=== PATIENT | female | born 1960 | race African-American/Black ===

== ENCOUNTER 2016-11-04 10:13 | Emergency (ER) | payer MEDICARE, OTHER ==
[~2016-11-04] VITALS: Ht 170.2 cm; Wt 86.2 kg
[~2016-11-04 10:13] MED LIST: CEPHALEXIN500 MG ORAL; CLINDAMYCIN HC150 MG ORAL; HYDROCHLOROTHIA25 MG ORAL; HYDROXYZINE HCL25 M1 PO; IBUPROFEN600 MG ORAL; IBUPROFEN800 MG ORAL; NORCO 5-325 TA1 EACH ORAL; PERMETHRIN60 GM TOPIC; PREDNISONE20 MG ORAL; VERAPAMIL ER240 MG ORAL; ZOCOR20 M1 ORAL
[2016-11-04 10:22] VITALS: BP 156/98
[2016-11-04] MEDS ORDERED: Solu-MEDROL 125mg Inj IM ONE (10:45)
--- NOTE | 2016-11-04 10:57 | Emergency Room Report ---
History of Present Illness General Chief Complaint: Skin Rash/Abscess Source: Patient Present Illness HPI Patient present with complaints of rash involving the upper neck upper shoulder area The rash is also involving both arms The area is itchy nature patient reports similar breakout several times in the past Denies any medications at this time denies any chest pain or shortness of breath Denies any recent travel or change in detergents Patient has not seen a cash posting clerk as of yet denies any vomiting denies any abdominal pain Allergies: Coded Allergies: No Known Allergies (Unverified , 08/04/14) Patient History Past Medical History: see triage record Pertinent Family History: none Last Menstrual Period: N/A Now: No Reviewed Nursing Documentation: PMH: Agreed, PSxH: Agreed Nursing Documentation-PMH Past Medical History: No History, Except For Hx Hypertension: Yes Review of Systems All Other Systems: negative except mentioned in HPI Physical Exam Vital Signs Date Time Temp Pulse Resp B/P Pulse Ox O2 Delivery O2 Flow Rate FiO2 11/04/16 10:16 98.2 102 16 156/98 100 Room Air Sp02 EP Interpretation: reviewed, normal General Appearance: well appearing, no apparent distress Head: normocephalic, atraumatic Eyes: bilateral eye EOMI, bilateral eye PERRL ENT: hearing grossly normal, normal pharynx, TMs + canals normal, uvula midline Neck: full range of motion, supple, no meningismus, no bony tend Respiratory: lungs clear, normal breath sounds, no rhonchi, no respiratory distress, no retraction, no accessory muscle use Cardiovascular #1: normal peripheral pulses, regular rate, rhythm, no edema, no gallop, no JVD, no murmur Gastrointestinal: normal bowel sounds, non tender, soft, no mass, no organomegaly, non-distended, no guarding, no hernia, no pulsatile mass, no rebound Musculoskeletal: normal inspection Neurologic: oriented x3, responsive, ems educator III-XII nml as tested, motor strength/ tone normal, sensory intact Psychiatric: mood/affect normal Skin: other - Rash involving the bilateral lower neck trapezius area, essentially what appears to be of the for the next, appears possibly eczematous in nature given some of the scaling of the skin, there is also some findings involving the forearm Lymphatic: normal inspection, no adenopathy Medical Decision Making Diagnostic Impression: Primary Impression: Rash and other nonspecific skin eruption ER Course Multiple differentials are considered including but not limited to, eczema, autoimmune type disease Medication reaction however the patient reports that she is not taking any medication Patient was treated symptomatically She has had several presentations with similar rash And she was encouraged highly to followup with dermatology, Last Vital Signs Date Time Temp Pulse Resp B/P Pulse Ox O2 Delivery O2 Flow Rate FiO2 11/04/16 10:22 98.2 72 16 156/98 100 Room Air Status: improved Disposition: HOME, SELF-CARE Condition: Improved Scripts Diphenhydramine Hcl* (BENADRYL*) 25 Mg Capsule 25 MG ORAL Q6H Y for Itching, #20 CAP Prov: VONNIE JACOBO D.O. 11/04/16 Ranitidine Hcl* (ZANTAC*) 150 Mg Tablet 150 MG ORAL TWICE A DAY, #30 TAB Prov: VONNIE JACOBO D.O. 11/04/16 Prednisone* (PREDNISONE*) 20 Mg Tablet 20 MG ORAL BID, #8 TAB 0 Refills Prov: VONNIE JACOBO D.O. 11/04/16 Additional Instructions: Patient is provided with the discharge instructions notified to follow up with primary doctor in the next 2-3 days otherwise return to the er with any worsening symptoms. Please note that this report is being documented using [employer] technology. This can lead to erroneous entry secondary to incorrect interpretation by the dictating instrument. VONNIE JACOBO D.O. Nov 04, 2016 10:57
[2016-11-04] MEDS ORDERED: RANITIDINE HCL150 MG ORAL (11:12)
[2016-11-04] MEDS ORDERED: PREDNISONE20 MG ORAL (11:12)
[2016-11-04] MEDS ORDERED: BENADRYL25 MG ORAL (11:12)
[2016-11-04 11:17] VITALS: BP 151/89
== END 2016-11-04 11:21 | disposition home or self-care (01) ==
LOC: EMR 11:06
DX: R21 Rash and other nonspecific skin eruption (principal); I10 Essential (primary) hypertension
CPT/HCPCS: 96372; 99284; J2930

== ENCOUNTER 2016-11-15 10:30 | Emergency (ER) | payer MEDICARE, OTHER ==
[~2016-11-15] VITALS: Ht 170.2 cm; Wt 88.5 kg
[~2016-11-15 10:30] MED LIST changes: +BENADRYL25 MG ORAL; +RANITIDINE HCL150 MG ORAL
[2016-11-15 10:49] VITALS: BP 137/91
[2016-11-15] MEDS ORDERED: BENAZEPRIL HCL10 MG ORAL (10:52)
[2016-11-15] MEDS ORDERED: Ketorolac 30mg Inj IV ONE (11:00)
[2016-11-15 11:38] LABS: MEAN CORPUSCULAR HEMOGLOBIN 32.8 PG (27.0-31.0); MEAN CORPUSCULAR HGB CONC 33.9 G/DL (32.0-36.0); MEAN CORPUSCULAR VOLUME 97 FL (80-99); MEAN PLATELET VOLUME 7.1 FL (6.5-10.1); PLATELET COUNT 345 K/UL (150-450); RED BLOOD COUNT 4.64 M/UL (4.20-5.40); RED CELL DISTRIBUTION WIDTH 11.5 % (11.6-14.8); WHITE BLOOD COUNT 13.1 K/UL (4.8-10.8)
[2016-11-15 11:43] LABS: APPEARANCE,URINE CLEAR; KETONES,URINE NEGATIVE (NEGATIVE); LEUKOCYTE ESTERASE ,URINE NEGATIVE (NEGATIVE); NITRITE,URINE NEGATIVE (NEGATIVE); PH,URINE 6.5 (4.5-8.0); PROTEIN,URINE NEGATIVE (NEGATIVE); UROBILINOGEN,URINE NORMAL MG/DL (0.0-1.0)
[2016-11-15 11:46] LABS: PROTHROMBIN TIME 9.9 SEC (9.30-11.50)
[2016-11-15 11:57] LABS: ALANINE AMINOTRANSFERASE 20 U/L (3-33); ALBUMIN/GLOBULIN RATIO 1.4 (1.0-2.7); ANION GAP 18 (5-15); ASPARTATE AMINO TRANSFERASE 14 U/L (5-40); CALCIUM 9.8 mg/dL (8.6-10.2); CARBON DIOXIDE 23 mEQ/L (20-30); CHLORIDE 97 mEQ/L (98-107); CREATININE 0.8 mg/dL (0.5-0.9); GLOMERULAR FILTRATION RATE > 60 mL/min (>60); HEMOLYSIS 7; LIPASE 47 U/L (< 60); SODIUM 138 mEQ/L (135-145); TOTAL PROTEIN 7.3 g/dL (6.6-8.7)
[2016-11-15 12:00] LABS: BAND NEUTROPHILS % (MANUAL) 4 % (0-8); BASOPHILS % (MANUAL) 0 % (0-2); EOSINOPHILS % (MANUAL) 0 % (0-3); LYMPHOCYTES % (MANUAL) 12 % (20-45); NEUTROPHILS % (MANUAL) 81 % (45-75); PLATELET ESTIMATE ADEQUATE; PLATELET MORPHOLOGY NORMAL; TOTAL CELLS COUNTED 100
[2016-11-15 12:06] VITALS: BP 125/74
--- NOTE | 2016-11-15 12:53 | Diagnostic Imaging Report ---
Indication: Right flank pain and abdominal pain Technique: Supine view of the abdomen Comparison: none Findings: Exam is limited due to patient body habitus. The liver appears enlarged. Bowel gas pattern is unremarkable. No unusual masses or calcifications. Calcifications in the pelvis probably represent phleboliths, although ureteral calculi not excludable Impression: No acute process Findings as noted
[2016-11-15 14:07] VITALS: BP 118/73
--- NOTE | 2016-11-15 14:47 | Emergency Room Report ---
History of Present Illness General Chief Complaint: Back Pain-No Injury Source: Patient Present Illness HPI Patient presents with R flank pain. This began yesterday. Not happen with strain or lifting. 8/10, aching, not radiating. Some frequent urination. Concern over possible UTI or kidney problem. Never with back problems. Worse with movement. No fevers, chills, NVD, change bowels. Not radiate to legs. Had prior kidney infection. No chest pain, swelling, dyspnea, headache, anxiety. H/O HTN. Allergies: Coded Allergies: No Known Allergies (Unverified , 08/04/14) Patient History Past Medical History: see triage record Social History: Reports: smoking Social History Narrative at home Reviewed Nursing Documentation: PMH: Agreed, PSxH: Agreed Nursing Documentation-PMH Past Medical History: No History, Except For Hx Hypertension: Yes Review of Systems All Other Systems: negative except mentioned in HPI Physical Exam Vital Signs Date Time Temp Pulse Resp B/P Pulse Ox O2 Delivery O2 Flow Rate FiO2 11/15/16 10:49 99.1 115 20 137/91 98 Room Air Sp02 EP Interpretation: reviewed, normal General Appearance: well appearing, no apparent distress, GCS 15 Head: normocephalic Eyes: bilateral eye PERRL, bilateral eye normal inspection ENT: moist mucus membranes Neck: supple Respiratory: lungs clear, normal breath sounds Cardiovascular #1: regular rate, rhythm Cardiovascular #2: 2+ radial (R) Gastrointestinal: normal inspection, normal bowel sounds, non tender, no mass, non-distended Genitourinary: CVA tenderness (R) Musculoskeletal: gait/station normal, normal range of motion, no calf tenderness, pelvis stable Neurologic: alert, oriented x3, grossly normal Psychiatric: mood/affect normal Skin: normal inspection, warm/dry Medical Decision Making Diagnostic Impression: Primary Impression: Flank pain Additional Impression: Leukocytosis Qualified Codes: D72.828 - Other elevated white blood cell count ER Course Patient with R flank pain and h/o kidney infection in past. DDx: pyelo, UTI, stone, strain, vascular process, back pain amongst others. Evaluation with UA, xrays, labs. Treatment with IV hydration, analgesia (patient drove self here). Labs with leukocytosis. With the nature of pain, CT indicated. CT without findings related to back pain. Improved with toradol. Offered to admit patient. She is choosing outpatient observation - has appointment with PMD on Sunday. Told to return if worsened or fevers. Patient stable for outpatient observation and treatment. Laboratory Tests Test 11/15/16 11:14 White Blood Count 13.1 K/UL (4.8-10.8) H Red Blood Count 4.64 M/UL (4.20-5.40) Hemoglobin 15.2 G/DL (12.0-16.0) Hematocrit 44.7 % (37.0-47.0) Mean Corpuscular Volume 97 FL (80-99) Mean Corpuscular Hemoglobin 32.8 PG (27.0-31.0) H Mean Corpuscular Hemoglobin Concent 33.9 G/DL (32.0-36.0) Red Cell Distribution Width 11.5 % (11.6-14.8) L Platelet Count 345 K/UL (150-450) Mean Platelet Volume 7.1 FL (6.5-10.1) Neutrophils (%) (Auto) % (45.0-75.0) Lymphocytes (%) (Auto) % (20.0-45.0) Monocytes (%) (Auto) % (1.0-10.0) Eosinophils (%) (Auto) % (0.0-3.0) Basophils (%) (Auto) % (0.0-2.0) Differential Total Cells Counted 100 Neutrophils % (Manual) 81 % (45-75) H Lymphocytes % (Manual) 12 % (20-45) L Monocytes % (Manual) 3 % (1-10) Eosinophils % (Manual) 0 % (0-3) Basophils % (Manual) 0 % (0-2) Band Neutrophils 4 % (0-8) Platelet Estimate Adequate Platelet Morphology Normal Red Blood Cell Morphology Normal Prothrombin Time 9.9 SEC (9.30-11.50) Prothrombin Time INR 1.0 (0.9-1.1) PTT 25 SEC (23-33) Urine Color Pale yellow Urine Appearance Clear Urine pH 6.5 (4.5-8.0) Urine Specific Laie 1.010 (1.005-1.035) Urine Protein Negative (NEGATIVE) Urine Glucose (UA) Negative (NEGATIVE) Urine Ketones Negative (NEGATIVE) Urine Occult Blood Negative (NEGATIVE) Urine Nitrite Negative (NEGATIVE) Urine Bilirubin Negative (NEGATIVE) Urine Urobilinogen Normal MG/DL (0.0-1.0) Urine Leukocyte Esterase Negative (NEGATIVE) Sodium Level 138 mEQ/L (135-145) Potassium Level 4.0 mEQ/L (3.4-4.9) Chloride Level 97 mEQ/L (98-107) L Carbon Dioxide Level 23 mEQ/L (20-30) Anion Gap 18 (5-15) H Blood Urea Nitrogen 13 mg/dL (7-23) Creatinine 0.8 mg/dL (0.5-0.9) Estimate Glomerular Filtration Rate > 60 mL/min (>60) Glucose Level 153 mg/dL (74-106) H Calcium Level 9.8 mg/dL (8.6-10.2) Total Bilirubin 0.4 mg/dL (0.0-1.2) Aspartate Amino Transferase (AST) 14 U/L (5-40) Alanine Aminotransferase (ALT) 20 U/L (3-33) Alkaline Phosphatase 62 U/L (35-104) Total Protein 7.3 g/dL (6.6-8.7) Albumin 4.3 g/dL (3.5-5.2) Globulin 3.0 g/dL Albumin/Globulin Ratio 1.4 (1.0-2.7) Lipase 47 U/L (< 60) Other X-Ray Diagnostic Results Other X-Ray Diagnostic Results : X-Ray Ordered: abdomen EP Interpretation: Yes Findings: other - pelvic calcifications, no SBO, NSBGP Number of Views: 2 CT/MRI/US Diagnostic Results CT/MRI/US Diagnostic Results : Imaging Test Ordered: abd/pelvis Impression Impression: No acute process Colonic diverticulosis. No evidence of diverticulitis Tiny nonobstructive prior report renal calculi. No evidence of ureteral calculus or obstructive uropathy Incidental finding of left chest wall musculature intramuscular lipoma Subcentimeter low-attenuation lesion in segment 2 of the liver, too small to characterize, most likely a benign simple cysts or bile hamartomas. Subcentimeter low-attenuation lesion projecting off of the upper pole right kidney, most likely a benign simple cortical cyst. No further followup necessary for either of these Last Vital Signs Date Time Temp Pulse Resp B/P Pulse Ox O2 Delivery O2 Flow Rate FiO2 11/15/16 15:22 80 14 130/93 99 Room Air 11/15/16 14:07 97.9 Status: improved Disposition: HOME, SELF-CARE Condition: Improved Scripts Tramadol Hcl* (ULTRAM*) 50 Mg Tablet 50 MG ORAL Q6H Y for For Pain, #10 TAB 0 Refills Prov: Joel Klein M.D. 11/15/16 Ibuprofen* (MOTRIN*) 600 Mg Tablet 600 MG ORAL Q6H Y for For Pain, #16 TAB Prov: Joel Klein M.D. 11/15/16 Referrals: NOT CHOSEN GISEL/,REFERRING (PCP) Joel Klein M.D. November 15, 2016 14:47
[2016-11-15] MEDS ORDERED: IBUPROFEN600 MG ORAL (14:50)
[2016-11-15] MEDS ORDERED: TRAMADOL HCL50 MG ORAL (14:50)
[2016-11-15 15:22] VITALS: BP 130/93
--- NOTE | 2016-11-16 08:39 | Diagnostic Imaging Report ---
Clinical Indication: Right-sided low back pain, frequent urination Technique: No oral contrast utilized, per emergency room physician request IV administration nonionic contrast. Venous phase spiral acquisition obtained through the abdomen and pelvis. Multiplanar reconstructions were generated. Total dose length product 896 mGycm. CTDIvol(s) 17 mGy. Dose reduction achieved using automated exposure control Comparison: None Findings: There is colonic diverticulosis. No evidence of diverticulitis. The appendix is normal. No small bowel distention. No free or loculated intraperitoneal air or fluid. The distal esophagus, stomach, duodenum are unremarkable. The liver demonstrates a subcentimeter low-attenuation lesion in segment 2. The bile ducts are unremarkable. Gallbladder is unremarkable. The pancreas, spleen, adrenals are unremarkable. Tiny nonobstructive calculi are seen in the upper pole of the right renal collecting system. No evidence of ureteral calculi, hydronephrosis, or hydroureter. There is a subcentimeter low-attenuation lesion projecting off of the upper pole of the right kidney. No focal renal cortical abnormality otherwise. No retroperitoneal or mesenteric mass or adenopathy. No pelvic mass or adenopathy. Uterus adnexal structures, bladder are all unremarkable. No evidence of significant soft tissue injury. The bones are unremarkable except for degenerative changes of the lumbosacral junction. The included lung bases are clear.. There is a 4.8 x 2.6 x 4 cm intramuscular lipoma in the left chest wall musculature. Impression: No acute process Colonic diverticulosis. No evidence of diverticulitis Tiny nonobstructive prior report renal calculi. No evidence of ureteral calculus or obstructive uropathy Incidental finding of left chest wall musculature intramuscular lipoma Subcentimeter low-attenuation lesion in segment 2 of the liver, too small to characterize, most likely a benign simple cysts or bile hamartomas. Subcentimeter low-attenuation lesion projecting off of the upper pole right kidney, most likely a benign simple cortical cyst. No further followup necessary for either of these The CT scanner at [facility] is accredited by the [employer] and the scans are performed using protocols designed to limit radiation exposure to as low as reasonably achievable to attain images of sufficient resolution adequate for diagnostic evaluation.
== END 2016-11-15 15:20 | disposition home or self-care (01) ==
LOC: EMR 10:58
DX: R10.9 Unspecified abdominal pain (principal); D72.829 Elevated white blood cell count, unspecified; K57.30 Diverticulosis of large intestine without perforation or abscess without bleeding; D17.79 Benign lipomatous neoplasm of other sites; N20.0 Calculus of kidney
CPT/HCPCS: 36415; 74000; 74177; 80053; 81003; 83690; 85007; 85025; 85610; 85730; 96360; 96361; 96374; 99284; J1885; J2405; Q9967

== ENCOUNTER 2017-02-13 15:07 | Emergency (ER) | payer MEDICARE, OTHER ==
[~2017-02-13] VITALS: Ht 170.2 cm; Wt 81.6 kg
[~2017-02-13 15:07] MED LIST changes: +BENAZEPRIL HCL10 MG ORAL; +TRAMADOL HCL50 MG ORAL
[2017-02-13 15:11] VITALS: BP 148/90
[2017-02-13] MEDS ORDERED: NORCO 5-325 TA1 EACH ORAL (15:25)
[2017-02-13] MEDS ORDERED: INDOMETHACIN75 MG ORAL (15:25)
[2017-02-13] MEDS ORDERED: PEPCID40 MG PO (15:25)
[2017-02-13 15:33] VITALS: BP 148/90
--- NOTE | 2017-02-13 18:32 | Emergency Room Report ---
History of Present Illness General Chief Complaint: Pain Source: Patient Present Illness HPI Patient t presents emergency department complaining left foot pain. Patient states that she develop acute onset of left foot pain with swelling and redness over today great toe. She denies any prior trauma. No other complaints are noted. Symptoms noted to be moderate. Patient does not remember having gout but she doesn't high-protein diet. No other modifying factors. No other associated signs and symptoms. No other complaints were noted. Allergies: Coded Allergies: No Known Allergies (Unverified , 08/04/14) Patient History Past Medical History: HTN Past Surgical History: none Pertinent Family History: none Social History: Denies: alcohol use, drug use, smoking Reviewed Nursing Documentation: PMH: Agreed, PSxH: Agreed Nursing Documentation-PMH Hx Hypertension: Yes Review of Systems All Other Systems: negative except mentioned in HPI Physical Exam Vital Signs Date Time Temp Pulse Resp B/P Pulse Ox O2 Delivery O2 Flow Rate FiO2 02/13/17 15:11 99.0 108 16 148/90 97 Room Air Sp02 EP Interpretation: reviewed, normal General Appearance: normal inspection, well appearing, no apparent distress, alert Head: atraumatic Eyes: bilateral eye normal inspection ENT: normal ENT inspection, hearing grossly normal, normal voice Neck: normal inspection, full range of motion, supple, no bony tend Respiratory: normal inspection, lungs clear, normal breath sounds, no respiratory distress, no retraction, no wheezing Cardiovascular #1: regular rate, rhythm, no edema Gastrointestinal: normal inspection, normal bowel sounds, non tender, soft, no guarding, no hernia Genitourinary: no CVA tenderness Musculoskeletal: swelling - Left nub card tender over great toe Neurologic: normal inspection, alert, responsive, speech normal Psychiatric: normal inspection, judgement/insight normal, mood/affect normal Skin: normal inspection, normal color, no rash Medical Decision Making Diagnostic Impression: Primary Impression: Gout attack ER Course Patient presents emergency department today complaining of foot pain. Differential into considerations include fracture dislocation versus strain versus gout versus septic joint. Patient exam is consistent with gout. The patient benefit from pain medications and indomethacin. Recommend outpatient followup with podiatry.Patient is advised to follow up with primary doctor in 2- 3 days and return the emergency room for any worsening symptoms and as needed. Last Vital Signs Date Time Temp Pulse Resp B/P Pulse Ox O2 Delivery O2 Flow Rate FiO2 02/13/17 15:11 99.0 108 16 148/90 97 Room Air Status: improved Disposition: HOME, SELF-CARE Condition: Stable Scripts Famotidine (PEPCID) 40 Mg Tablet 40 MG PO DAILY, #14 TAB 0 Refills Prov: PETRA BARRIENTOS M.D. 02/13/17 Indomethacin* (INDOMETHACIN*) 75 Mg Capsule.er 75 MG ORAL TWICE A DAY Y for For Pain, #20 CAP 0 Refills Prov: PETRA BARRIENTOS M.D. 02/13/17 Hydrocodone Bit/Acetaminophen 5-325* (NORCO 5-325*) 1 Each Tablet 1 TAB ORAL Q6H Y for For Pain, #20 TAB 0 Refills Prov: PETRA BARRIENTOS M.D. 02/13/17 Referrals: NOT CHOSEN GISEL/,REFERRING (PCP) Patient Instructions: PETRA Kelly M.D. Feb 13, 2017 18:32
== END 2017-02-13 15:33 | disposition home or self-care (01) ==
LOC: EMR 15:21
DX: M10.9 Gout, unspecified (principal); I10 Essential (primary) hypertension
CPT/HCPCS: 99284

== ENCOUNTER 2017-03-08 12:34 | Emergency (ER) | payer MEDICARE, OTHER ==
[~2017-03-08] VITALS: Ht 170.2 cm; Wt 86.2 kg
[~2017-03-08 12:34] MED LIST changes: +INDOMETHACIN75 MG ORAL; +PEPCID40 MG PO
[2017-03-08] MEDS ORDERED: oxyCODONE HCL/Acetaminophen 5/325mg ORAL ONE (13:30)
[2017-03-08 13:41] VITALS: BP 161/108
[2017-03-08 14:03] LABS: BASOPHILS % (AUTO) 1.1 % (0.0-2.0); EOSINOPHILS % (AUTO) 1.1 % (0.0-3.0); LYMPHOCYTES % (AUTO) 25.5 % (20.0-45.0); MEAN CORPUSCULAR HGB CONC 33.5 G/DL (32.0-36.0); MEAN CORPUSCULAR VOLUME 96 FL (80-99); MEAN PLATELET VOLUME 7.5 FL (6.5-10.1); NEUTROPHILS % (AUTO) 67.4 % (45.0-75.0); PLATELET COUNT 351 K/UL (150-450); RED BLOOD COUNT 4.41 M/UL (4.20-5.40); RED CELL DISTRIBUTION WIDTH 11.8 % (11.6-14.8); WHITE BLOOD COUNT 12.3 K/UL (4.8-10.8)
[2017-03-08 14:16] LABS: ALANINE AMINOTRANSFERASE 13 U/L (3-33); ALBUMIN/GLOBULIN RATIO 1.5 (1.0-2.7); ANION GAP 15 (5-15); ASPARTATE AMINO TRANSFERASE 12 U/L (5-40); CALCIUM 9.7 mg/dL (8.6-10.2); CARBON DIOXIDE 25 mEQ/L (20-30); CHLORIDE 98 mEQ/L (98-107); CREATININE 0.7 mg/dL (0.5-0.9); GLOMERULAR FILTRATION RATE > 60 mL/min (>60); HEMOLYSIS 0; POTASSIUM 3.4 mEQ/L (3.4-4.9); SODIUM 138 mEQ/L (135-145); TOTAL PROTEIN 7.4 g/dL (6.6-8.7)
[2017-03-08] MEDS ORDERED: Indomethacin 75 MG CAPSULE.ER ORAL SCH (15:00)
[2017-03-08] MEDS ORDERED: INDOCIN75 MG ORAL (15:18)
[2017-03-08 15:41] VITALS: BP 145/89
[2017-03-08 15:44] VITALS: BP 145/89
[2017-03-08 17:45] LABS: APPEARANCE, BODY FLUID HAZY; BD FL SOURCE SYNOVIAL FLUID; BD FL VOLUME 10 mL; BODY FLUID NUCLEATED CELLS 27100 /CUMM; BODY FLUID RBC 73 /CUMM; MONONUCLEAR WBC 12 %; POLYMORPHONUCLEAR WBC 85 %
--- NOTE | 2017-03-10 07:21 | Emergency Room Report ---
History of Present Illness General Chief Complaint: Pain Source: Patient Present Illness HPI [id number] walk-in with left knee pain/swelling for 2 days Atraumatic Denies fever/chills ?history of gout - had swelling in toe previously Denies history of OA, RA No previous septic joint Swelling reducing mobility of left knee, cant flex fully Difficulty ambulating Allergies: Coded Allergies: No Known Allergies (Unverified , 08/04/14) Patient History Past Medical History: other - ?gout Past Surgical History: none Pertinent Family History: none Social History: Denies: smoking, alcohol use, drug use Last Menstrual Period: no cycles Now: No Immunizations: UTD Reviewed Nursing Documentation: PMH: Agreed, PSxH: Agreed Nursing Documentation-PMH Past Medical History: No History, Except For Hx Hypertension: Yes Review of Systems All Other Systems: negative except mentioned in HPI Physical Exam Vital Signs Date Time Temp Pulse Resp B/P (MAP) Pulse Ox O2 Delivery O2 Flow Rate FiO2 03/08/17 12:51 98.4 105 20 161/108 98 Room Air Sp02 EP Interpretation: reviewed, normal General Appearance: normal inspection, well appearing, no apparent distress, alert, GCS 15, non-toxic Head: normocephalic, atraumatic Eyes: bilateral eye PERRL, bilateral eye EOMI ENT: normal ENT inspection, hearing grossly normal, normal voice Neck: normal inspection, full range of motion, supple, no bony tend Respiratory: normal inspection, lungs clear, normal breath sounds, no respiratory distress, no retraction, no wheezing Cardiovascular #1: regular rate, rhythm, no edema Gastrointestinal: normal inspection, normal bowel sounds, non tender, soft, no guarding, no hernia Genitourinary: no CVA tenderness Musculoskeletal: other - Left knee: moderate large effusion at superior medial/ lateral aspect of knee. Very tender. ROM limited d/t swelling Neurologic: normal inspection, alert, oriented x3, responsive, speech normal Psychiatric: normal inspection, judgement/insight normal, mood/affect normal Skin: normal inspection, normal color, no rash Lymphatic: normal inspection Procedures Additional Procedure Procedure Narrative Patient positioned sitting upright with left knee extended Area covered in sterile drapes Steril gloves worn Area of superior/lateral effusion pocket visualized on ultrasound Anesthetized with 1% lidocaine Under sterile procedures 18g needle advanced into effusion and 60cc yellow, hazy fluid withdrawn from knee No uncontrolled bleeding following procedure Patient tolerated well Medical Decision Making Diagnostic Impression: Primary Impression: Gout Qualified Codes: M10.062 - Idiopathic gout, left knee Additional Impression: Left knee pain Qualified Codes: M25.562 - Pain in left knee ER Course Left knee pain Atraumatic Afebrile. Mild leuks on labs Blood Cx negative Synovial fluid crystals seen Likely gout Indomethacin given in ED with Rx for same PMD followup DC home Last Vital Signs Date Time Temp Pulse Resp B/P (MAP) Pulse Ox O2 Delivery O2 Flow Rate FiO2 03/08/17 15:44 98.4 75 20 145/89 99 Room Air Status: improved Disposition: HOME, SELF-CARE Condition: Improved Scripts Indomethacin (Indocin) 75 Mg Capsule.er 75 MG ORAL BID for 7 Days, #30 CAP Prov: LENY FONSECA M.D. 03/08/17 Additional Instructions: - Keep compression bandage tight on knee, elevate at home and while sleeping - Take indomethacin as prescribed - We will follow up with your in lab results suggest cause of pain/swelling is infection LENY FONSECA M.D. Mar 10, 2017 07:21
== END 2017-03-08 15:40 | disposition home or self-care (01) ==
LOC: EMR 13:30
DX: M10.062 Idiopathic gout, left knee (principal); M25.562 Pain in left knee; I10 Essential (primary) hypertension
CPT/HCPCS: 10060; 36415; 80053; 85025; 87040; 89051; 89060; 99283

== ENCOUNTER 2017-03-20 12:30 | Emergency (ER) | payer MEDICARE, OTHER ==
[~2017-03-20] VITALS: Ht 170.2 cm; Wt 86.2 kg
[~2017-03-20 12:30] MED LIST changes: +INDOCIN75 MG ORAL
[2017-03-20] MEDS ORDERED: KENALOG 0.1% CR15 GM APPLIC (13:19)
[2017-03-20] MEDS ORDERED: DESONIDE15 G1 TP (13:19)
[2017-03-20] MEDS ORDERED: PREDNISONE20 MG ORAL (13:19)
[2017-03-20] MEDS ORDERED: AQUAPHOR99 GM TP (13:19)
[2017-03-20 13:34] VITALS: BP 141/89
[2017-03-20 13:36] VITALS: BP 141/89
--- NOTE | 2017-03-20 17:11 | Emergency Room Report ---
History of Present Illness General Chief Complaint: Eye Problems Present Illness HPI The patient is a 56-year-old female with a history of eczema presenting for rash. She states that she has had a rash on the body for the last 2 weeks but has not noticed a similar rash around her eyes which began 2 days prior. Described as itchy and not painful. She has not tried any medications for this. He denies any known sick contacts recent travel. She denies any fever or chills. She denies any other symptoms including N, V, dizziness, blurred vision Allergies: Coded Allergies: No Known Allergies (Unverified , 08/04/14) Patient History Past Medical History: see triage record Pertinent Family History: none Reviewed Nursing Documentation: PMH: Agreed, PSxH: Agreed Nursing Documentation-PMH Hx Hypertension: Yes Review of Systems All Other Systems: negative except mentioned in HPI Physical Exam Vital Signs Date Time Temp Pulse Resp B/P (MAP) Pulse Ox O2 Delivery O2 Flow Rate FiO2 03/20/17 12:55 97.9 109 20 146/93 98 Room Air Sp02 EP Interpretation: reviewed, normal General Appearance: no apparent distress, alert, GCS 15, non-toxic Head: normocephalic, atraumatic Eyes: bilateral eye normal inspection, bilateral eye PERRL, bilateral eye EOMI ENT: hearing grossly normal, normal pharynx, no angioedema, normal voice Neck: full range of motion, supple/symm/no masses Respiratory: chest non-tender, lungs clear, normal breath sounds, speaking full sentences Cardiovascular #1: regular rate, rhythm, no edema Musculoskeletal: back normal, gait/station normal, normal range of motion, non- tender Neurologic: alert, oriented x3, responsive, motor strength/tone normal, sensory intact, speech normal Psychiatric: judgement/insight normal, memory normal, mood/affect normal, no suicidal/homicidal ideation Skin: rash - eczematous rash around eyes, back of neck, bilat antecubital regions Medical Decision Making PA Attestation Dr. Valentino is my supervising physician. Patient management was discussed with my supervising physician Diagnostic Impression: Primary Impression: Eczema Qualified Codes: L30.9 - Dermatitis, unspecified ER Course The patient is a 56-year-old female with a history of eczema presenting for rash Ddx considered include but not limited to conjunctivitis, insect bite, contact dermatitis, eczema, cellulitis PE: NAD Eczematous rash sunning both eyes, neck, and bilateral antecubital region The patient will be treated with topical steroids, Aquaphor, and short course of oral steroids ER precautions are given she'll follow up with primary doctor Last Vital Signs Date Time Temp Pulse Resp B/P (MAP) Pulse Ox O2 Delivery O2 Flow Rate FiO2 03/20/17 13:36 97.9 86 20 141/89 98 Room Air Status: improved Disposition: HOME, SELF-CARE Condition: Improved Scripts Prednisone* (PREDNISONE*) 20 Mg Tablet 20 MG ORAL DAILY, #5 TAB 0 Refills Prov: SHEEBA EDWARDS P.A. 03/20/17 Petrolatum,White (AQUAPHOR) 99 Gm Oint...g. 1 APPLIC TP BID, #100 GM Prov: TERZIANSHEEBA P.A. 03/20/17 Desonide (DESONIDE) 15 Gm Oint...g. 1 APPLIC TP BID, #15 GM Prov: SHEEBA EDWARDS P.A. 03/20/17 Triamcinolone Acet (Triamcinolone Acetonide) 80 Gm Cream..g. 1 APPLIC APPLIC BID, #80 GM Prov: TERZIANEMEKAY P.A. 03/20/17 Referrals: NOT CHOSEN [facility]/MD,REFERRING (PCP) Patient Instructions: Eczema Additional Instructions: I discussed my findings with the patient. All questions and concerns have been answered. Treatment and medication compliance have been addressed. I advised the patient that they need to follow up with PMD in 3-5 days. Return to ED if symptoms worsen, new symptoms arise, or if needed for any reason. Patient verbalized understanding of discharge instructions. SHEEBA EDWARDS Mar 20, 2017 17:11
== END 2017-03-20 14:25 | disposition home or self-care (01) ==
LOC: EMR 13:10
DX: L30.9 Dermatitis, unspecified (principal); I10 Essential (primary) hypertension
CPT/HCPCS: 99284

== ENCOUNTER 2017-08-29 11:59 | Emergency (ER) | payer MEDICARE, OTHER ==
[~2017-08-29] VITALS: Ht 170.2 cm; Wt 77.1 kg
[~2017-08-29 11:59] MED LIST changes: +AQUAPHOR99 GM TP; +DESONIDE15 G1 TP; +KENALOG 0.1% CR15 GM APPLIC
--- NOTE | 2017-08-29 12:43 | Emergency Room Report ---
History of Present Illness General Chief Complaint: Back Pain-No Injury Source: Patient Present Illness HPI 56 YO Female presents to the ED c/o Right -sided low back pain that is constant and 10/10 in severity with intermittent exacerbations of pain that shoots down the upper right buttock and posterior right leg x 7 days. Patient denies previous injury to the back, recent trauma or fall, history neoplastic disease or recent spinal procedures. Patient denies excessive weight lifting or appreciable increase in physical activity. Patient states that she had one similar episode of symptoms many years ago that resolved on its own for approximately a week or so. Patient states that her symptoms have not gotten better. Hx of gout, HTN, and hyperlipidemia. Denies numbness tingling or loss of sensation or gross motor movements of the extremities, incontinence of bowel or bladder. Denies CP, Palpitations, LOC, AMS, dizziness, Changes in Vision, Sensation, paresthesias, or a sudden severe headache. Allergies: Coded Allergies: No Known Allergies (Unverified , 08/04/14) Patient History Past Medical History: see triage record Past Surgical History: none Pertinent Family History: none Last Menstrual Period: years ago Reviewed Nursing Documentation: PMH: Agreed, PSxH: Agreed Nursing Documentation-PMH Past Medical History: No Stated History Hx Hypertension: Yes Review of Systems All Other Systems: negative except mentioned in HPI Physical Exam Vital Signs Date Time Temp Pulse Resp B/P (MAP) Pulse Ox O2 Delivery O2 Flow Rate FiO2 08/29/17 12:04 97.8 103 18 144/88 97 Room Air 97.9 Sp02 EP Interpretation: reviewed, normal General Appearance: no apparent distress, alert, GCS 15, non-toxic Head: normocephalic, atraumatic ENT: hearing grossly normal, normal voice Neck: full range of motion Respiratory: lungs clear, normal breath sounds, speaking full sentences Cardiovascular #1: regular rate, rhythm Gastrointestinal: non tender, soft Genitourinary: normal inspection, no CVA tenderness Musculoskeletal: back normal, gait/station normal, normal range of motion, tender - Right paraspinal ttp to lumbar musculature, compared to the left the right side is palpable prominent/tight. there is no midline spinal tenderness, step-off or obvious deformity. pt. has FROM and is ambulatory - pain exacerbated intermittently durring ROM testing. some right upper gluteal TTP as well. Neurologic: alert, oriented x3, responsive, motor strength/tone normal, sensory intact, speech normal, grossly normal Psychiatric: judgement/insight normal Skin: normal color, no rash, warm/dry, well hydrated Lymphatic: no adenopathy Medical Decision Making PA Attestation Dr. Klein is my supervising Physician whom patient management has been discussed with. Diagnostic Impression: Primary Impression: Back pain Qualified Codes: M54.41 - Lumbago with sciatica, right side Additional Impression: Muscle spasm of back ER Course 56 YO Female presents to the ED c/o Right -sided low back pain that is constant and 10/10 in severity with intermittent exacerbations of pain that shoots down the upper right buttock and posterior right leg x 7 days. Patient denies previous injury to the back, recent trauma or fall, history neoplastic disease or recent spinal procedures. Patient denies excessive weight lifting or appreciable increase in physical activity. Patient states that she had one similar episode of symptoms many years ago that resolved on its own for approximately a week or so. Patient states that her symptoms have not gotten better. Hx of gout, HTN, and hyperlipidemia. Denies numbness tingling or loss of sensation or gross motor movements of the extremities, incontinence of bowel or bladder. Denies CP, Palpitations, LOC, AMS, dizziness, Changes in Vision, Sensation, paresthesias, or a sudden severe headache Ddx considered but are not limited to Fracture, dislocation, contusion, epidural abscess, Sprain/Strain/Spasm, Sciatica just to name a few. Vital signs: mild tachycardic at 103 - most likely secondary to pain, remaining VS are WNL, pt. is afebrile H&PE are most consistent with sciatica ORDERS: X-ray not required at this time, no spinous process tenderness ED INTERVENTIONS: - IM Toradol 15mg. DISCHARGE: At this time pt. is stable for d/c to home. Will provide printed patient care instructions, and any necessary prescriptions. Care plan and follow up instructions have been discussed with the patient prior to discharge. Last Vital Signs Date Time Temp Pulse Resp B/P (MAP) Pulse Ox O2 Delivery O2 Flow Rate FiO2 08/29/17 12:04 97.8 103 18 144/88 97 Room Air 97.9 Disposition: HOME, SELF-CARE Condition: Stable Scripts Lidocaine (Lidoderm) 1 Each Adh..patch 1 PATCH TOPIC DAILY, #25 PATCH 0 Refills Patch(es) may remain in place for up to 12 hours in any 24-hour period. Prov: Katie Zaragoza. 08/29/17 Methocarbamol* (ROBAXIN*) 500 Mg Tablet 1000 MG PO TID, #42 TAB 0 Refills Prov: Katie ZaragozaA. 08/29/17 Ibuprofen* (MOTRIN*) 600 Mg Tablet 600 MG ORAL THREE TIMES A DAY, #30 TAB 0 Refills Prov: Katie ZaragozaA. 08/29/17 Carisoprodol (SOMA) 250 Mg Tablet 250 MG PO QHS, #1 TAB Prov: Katie ZaragozaA. 08/29/17 Referrals: NOT CHOSEN IPA/MD,REFERRING (PCP) Patient Instructions: Back Pain, Adult, Muscle Cramps and Spasms, [id number] Additional Instructions: Take 1 "Soma/carisoprodol" tonight at bedtime. Then start taking "Robaxin /methocarbamol" for maintenance starting tomorrow, do not take both medications at the same time. Take medications as directed. Follow up with a Primary Care Provider in 3-5 days, even if your symptoms have resolved. --Please review list of primary care clinics, if you do not already have a primary care provider Return sooner to ED if new symptoms occur, or current symptoms become worse. Do not drink alcohol, drive, or operate heavy machinery while taking Muscle Relaxer as this may cause drowsiness. - Please note that this Emergency Department Report was dictated using [employer] course manager technology software, occasionally this can lead to erroneous entry secondary to interpretation by the dictation equipment. Katie Zaragoza Aug 29, 2017 12:43
[2017-08-29] MEDS ORDERED: Ketorolac 60mg Inj IM ONE (12:45)
[2017-08-29] MEDS ORDERED: SOMA250 MG PO (12:46)
[2017-08-29] MEDS ORDERED: IBUPROFEN600 MG ORAL (12:46)
[2017-08-29] MEDS ORDERED: LIDODERM700 M1 TOPIC (12:46)
[2017-08-29] MEDS ORDERED: ROBAXIN500 MG PO (12:46)
[2017-08-29 12:54] VITALS: BP 144/88
[2017-08-29 12:55] VITALS: BP 144/88
== END 2017-08-29 12:57 | disposition home or self-care (01) ==
LOC: EMR 12:16
DX: M54.5 Low back pain (principal); M62.830 Muscle spasm of back; I10 Essential (primary) hypertension; E78.5 Hyperlipidemia, unspecified; M10.9 Gout, unspecified
CPT/HCPCS: 96372; 99283

== ENCOUNTER 2018-01-21 14:27 | Emergency (ER) | payer MEDICARE, OTHER ==
[~2018-01-21] VITALS: Ht 170.2 cm; Wt 83.9 kg
[~2018-01-21 14:27] MED LIST changes: +LIDODERM700 M1 TOPIC; +ROBAXIN500 MG PO; +SOMA250 MG PO
[2018-01-21 14:44] VITALS: BP 112/66
[2018-01-21] MEDS ORDERED: Albuterol ud Inhalation HHN ONE (14:45)
--- NOTE | 2018-01-21 15:27 | Emergency Room Report ---
History of Present Illness General Chief Complaint: Dyspnea/Respdistress Source: Patient Present Illness HPI 57 y/o female complains of intermittent episodes of SOB - one today. No worsening or alleviating factors - pt cannot attribute episodes to anything. They last about 1 hour. Had one today and daughter noted shaking so brought her here. Pt states still SOB but less shaking. Associated palpitations - pt feels HR is irregular. Allergies: Coded Allergies: No Known Allergies (Unverified , 08/04/14) Patient History Past Medical History: HTN Past Surgical History: none Pertinent Family History: none Social History: Reports: smoking; Denies: alcohol use, drug use Last Menstrual Period: n/a Nursing Documentation-[facility] Hx Hypertension: Yes Review of Systems Constitutional: Denies: no symptoms, see HPI, chills, sweats, fever, malaise, weakness, other Eye: Denies: no symptoms, see HPI, eye pain, blurred vision, tearing, double vision, nose pain, nose congestion, acuity changes, discharge, other ENT: Denies: no symptoms, see HPI, ear pain, ear discharge, nose pain, nose congestion, throat pain, throat swelling, mouth pain, hearing loss, nasal discharge, other Respiratory: Reports: see HPI Cardiovascular: Denies: no symptoms, see HPI, chest pain, edema, palpitations, syncope, PND, other Gastrointestinal: Denies: no symptoms, see HPI, abdominal pain, constipation, diarrhea, nausea, vomiting, melena, hematemesis, other Musculoskeletal: Denies: no symptoms, see HPI, back pain, gout, joint pain, joint swelling, muscle pain, muscle stiffness, other Skin: Denies: no symptoms, see HPI, rash, change in color, change in hair/nails , dryness, lesions, other Neurological: Denies: no symptoms, see HPI, headache, numbness, paresthesia, seizure, tingling, tremors, focal weakness, syncope, dizziness, other Allergic: Denies: no symptoms, see HPI, urticaria, hay fever, other Physical Exam Vital Signs Date Time Temp Pulse Resp B/P (MAP) Pulse Ox O2 Delivery O2 Flow Rate FiO2 01/21/18 14:34 99.0 114 16 127/81 97 Room Air 99.0 Sp02 EP Interpretation: reviewed, normal General Appearance: no apparent distress, alert, GCS 15, non-toxic Head: normocephalic, atraumatic Eyes: bilateral eye normal inspection, bilateral eye PERRL ENT: hearing grossly normal, normal pharynx, no angioedema, normal voice Neck: full range of motion, supple/symm/no masses Respiratory: chest non-tender, lungs clear, normal breath sounds, speaking full sentences Cardiovascular #1: regular rate, rhythm, no edema Gastrointestinal: normal bowel sounds, non tender, soft, non-distended, no guarding, no rebound Musculoskeletal: back normal, gait/station normal, normal range of motion, non- tender, calf tenderness Neurologic: alert, oriented x3, responsive, motor strength/tone normal, sensory intact, speech normal Psychiatric: judgement/insight normal, memory normal, mood/affect normal, no suicidal/homicidal ideation Skin: normal color, no rash, warm/dry, well hydrated Medical Decision Making Diagnostic Impression: Primary Impression: Dyspnea Additional Impressions: Hypokalemia Dehydration ER Course Patient is a 57-year-old female presenting with dyspnea. Patient received albuterol treatment in the emergency department with relief. Laboratory studies showed evidence of hypokalemia which has been repleted and dehydration for which the patient has received IV fluids. Chest x-ray shows no acute abnormality and other laboratories are unremarkable. Patient will be sent home to follow with her primary care physician. With she and the daughter agree with the plan Laboratory Tests Test 01/21/18 15:13 White Blood Count 10.1 K/UL (4.8-10.8) Red Blood Count 4.22 M/UL (4.20-5.40) Hemoglobin 13.3 G/DL (12.0-16.0) Hematocrit 38.8 % (37.0-47.0) Mean Corpuscular Volume 92 FL (80-99) Mean Corpuscular Hemoglobin 31.6 PG (27.0-31.0) H Mean Corpuscular Hemoglobin Concent 34.3 G/DL (32.0-36.0) Red Cell Distribution Width 11.5 % (11.6-14.8) L Platelet Count 391 K/UL (150-450) Mean Platelet Volume 7.0 FL (6.5-10.1) Neutrophils (%) (Auto) 62.0 % (45.0-75.0) Lymphocytes (%) (Auto) 26.1 % (20.0-45.0) Monocytes (%) (Auto) 9.5 % (1.0-10.0) Eosinophils (%) (Auto) 1.6 % (0.0-3.0) Basophils (%) (Auto) 0.8 % (0.0-2.0) Sodium Level 136 MMOL/L (136-145) Potassium Level 2.9 MMOL/L (3.5-5.1) L Chloride Level 102 MMOL/L (98-107) Carbon Dioxide Level 25 MMOL/L (21-32) Anion Gap 9 mmol/L (5-15) Blood Urea Nitrogen 29 mg/dL (7-18) H Creatinine 1.0 MG/DL (0.55-1.30) Estimate Glomerular Filtration Rate > 60 mL/min (>60) Glucose Level 121 MG/DL (74-106) H Calcium Level 9.8 MG/DL (8.5-10.1) Total Bilirubin 0.6 MG/DL (0.2-1.0) Aspartate Amino Transferase (AST) 14 U/L (15-37) L Alanine Aminotransferase (ALT) 20 U/L (12-78) Alkaline Phosphatase 67 U/L (46-116) Total Creatine Kinase 155 U/L (26-308) Creatine Kinase MB 1.4 NG/ML (0.0-3.6) Creatine Kinase MB Relative Index 0.9 Troponin I 0.009 ng/mL (0.000-0.056) Total Protein 7.6 G/DL (6.4-8.2) Albumin 3.7 G/DL (3.4-5.0) Globulin 3.9 g/dL Albumin/Globulin Ratio 0.9 (1.0-2.7) L EKG Diagnostic Results EKG Time: 14:52 Rate: tachycardiac Rhythm: other - sr ST Segments: no acute changes Chest X-Ray Diagnostic Results Chest X-Ray Diagnostic Results : Indication: Shortness of Breath EP Interpretation: Yes Interpretation: no consolidation, no effusion Impression: No acute disease Last Vital Signs Date Time Temp Pulse Resp B/P (MAP) Pulse Ox O2 Delivery O2 Flow Rate FiO2 18 14:34 99.0 114 16 127/81 97 Room Air 99.0 Disposition: HOME, SELF-CARE Condition: Improved Scripts Albuterol Sulfate* (ALBUTEROL SULFATE MDI*) 8.5 Gm Hfa.aer.ad 2 PUFF INH Q6H PRN for Shortness of Breath, #1 EA 0 Refills Prov: ENIO HIDALGO 01/21/18 ENIO HIDALGO Jan 21, 2018 15:27
[2018-01-21 15:34] LABS: BASOPHILS % (AUTO) 0.8 % (0.0-2.0); EOSINOPHILS % (AUTO) 1.6 % (0.0-3.0); HEMATOCRIT 38.8 % (37.0-47.0); HEMOGLOBIN 13.3 G/DL (12.0-16.0); LYMPHOCYTES % (AUTO) 26.1 % (20.0-45.0); MEAN CORPUSCULAR VOLUME 92 FL (80-99); MONOCYTES % (AUTO) 9.5 % (1.0-10.0); PLATELET COUNT 391 K/UL (150-450); RED BLOOD COUNT 4.22 M/UL (4.20-5.40); RED CELL DISTRIBUTION WIDTH 11.5 % (11.6-14.8); WHITE BLOOD COUNT 10.1 K/UL (4.8-10.8)
--- NOTE | 2018-01-21 15:38 | Diagnostic Imaging Report ---
Indication: Dyspnea Comparison: None A single view chest radiograph was obtained. Findings: Cardiomediastinal appearance is within normal limits for age. Pulmonary vascularity is appropriate. The diaphragmatic contour is smooth and costophrenic angles are sharp. No pleural effusions are identified. The bones are unremarkable. Impression: No acute findings
[2018-01-21 15:48] LABS: ANION GAP 9 mmol/L (5-15); BLOOD UREA NITROGEN 29 mg/dL (7-18); CALCIUM 9.8 MG/DL (8.5-10.1); CARBON DIOXIDE 25 MMOL/L (21-32); CHLORIDE 102 MMOL/L (98-107); POTASSIUM 2.9 MMOL/L (3.5-5.1); SODIUM 136 MMOL/L (136-145)
[2018-01-21 16:01] LABS: ALANINE AMINOTRANSFERASE 20 U/L (12-78); ALBUMIN 3.7 G/DL (3.4-5.0); ALBUMIN/GLOBULIN RATIO 0.9 (1.0-2.7); ALKALINE PHOSPHATASE 67 U/L (46-116); ASPARTATE AMINO TRANSFERASE 14 U/L (15-37); BILIRUBIN,TOTAL 0.6 MG/DL (0.2-1.0); CKMB 1.4 NG/ML (0.0-3.6); CREATINE KINASE 155 U/L (26-308)
[2018-01-21] MEDS ORDERED: Sodium Chloride 500ML 500 ML IV ONE (16:15)
[2018-01-21 16:45] VITALS: BP 118/74
[2018-01-21] MEDS ORDERED: ALBUTEROL SULF8.5 GM INH (17:31)
[2018-01-21 17:40] VITALS: BP 118/74
--- NOTE | 2018-01-22 14:10 | Cardiology Report ---
APPROVED REPORT EKG Measurement Heart [id number] Sinus tachycardia Nonspecific ST abnormality Abnormal ECG
== END 2018-01-21 17:40 | disposition home or self-care (01) ==
LOC: EMR 15:00
DX: R06.00 Dyspnea, unspecified (principal); E87.6 Hypokalemia; E86.0 Dehydration; I10 Essential (primary) hypertension; F17.200 Nicotine dependence, unspecified, uncomplicated
CPT/HCPCS: 36415; 71045; 80053; 82550; 82553; 84484; 85025; 93005; 94640; 94664; 99283; J7040; J8499

== ENCOUNTER 2018-02-27 12:38 | Emergency (ER) | payer MEDICARE, OTHER ==
[~2018-02-27] VITALS: Ht 170.2 cm; Wt 86.2 kg
[~2018-02-27 12:38] MED LIST changes: +ALBUTEROL SULF8.5 GM INH
[2018-02-27 14:21] LABS: BILIRUBIN, URINE NEGATIVE (NEGATIVE); GLUCOSE, URINE (UA) NEGATIVE (NEGATIVE); KETONES,URINE NEGATIVE (NEGATIVE); LEUKOCYTE ESTERASE ,URINE 1+ (NEGATIVE); NITRITE,URINE NEGATIVE (NEGATIVE); PH,URINE 6.5 (4.5-8.0); PROTEIN,URINE NEGATIVE (NEGATIVE); UROBILINOGEN,URINE NORMAL MG/DL (0.0-1.0)
[2018-02-27 14:25] LABS: APPEARANCE,URINE SLIGHTLY CLOUDY; COLOR,URINE YELLOW
--- NOTE | 2018-02-27 15:37 | Emergency Room Report ---
History of Present Illness General Chief Complaint: Constipation Source: Patient Present Illness HPI 57 YO Female presents to the ED C/O constipation x 1 week. last BM was today but had to significantly strain and had 8/10 in severity pain . pt .reports some left sided low back pain with radiation to the posterior left leg. denies trauma or fall. denies N/V/F/C. Denies diarrhea, blood in the stool or dark tarry stools. Pt. denies abdominal tenderness. Denies hx of hemorrhoids. Reports bloating sensation. Denies hematuria, dysuria or urinary frequency. Pt. is requesting a stool softener. Allergies: Coded Allergies: No Known Allergies (Unverified , 08/04/14) Patient History Past Medical History: see triage record Past Surgical History: none Pertinent Family History: none Now: No Immunizations: UTD Reviewed Nursing Documentation: PMH: Agreed; PSxH: Agreed Nursing Documentation-PMH Past Medical History: No History, Except For Hx Hypertension: Yes Review of Systems All Other Systems: negative except mentioned in HPI Physical Exam Vital Signs Date Time Temp Pulse Resp B/P (MAP) Pulse Ox O2 Delivery O2 Flow Rate FiO2 02/27/18 13:05 97.9 91 16 144/90 96 Room Air 97.9 Sp02 EP Interpretation: reviewed, normal General Appearance: no apparent distress, alert, GCS 15, non-toxic Head: normocephalic, atraumatic Eyes: bilateral eye normal inspection, bilateral eye PERRL, bilateral eye other - no icterus ENT: hearing grossly normal, normal voice Neck: full range of motion Respiratory: lungs clear, normal breath sounds, speaking full sentences Cardiovascular #1: regular rate, rhythm Gastrointestinal: normal bowel sounds, non tender, soft, non-distended, no guarding, no hernia, no pulsatile mass Rectal: deferred Genitourinary: normal inspection, no CVA tenderness Musculoskeletal: back normal, gait/station normal, normal range of motion, non- tender Neurologic: alert, oriented x3, responsive, motor strength/tone normal, sensory intact, normal gait, speech normal, grossly normal Psychiatric: judgement/insight normal Skin: normal color, no rash, warm/dry, well hydrated, other - no jaundice Medical Decision Making PA Attestation Dr. Quezada is my supervising Physician whom patient management has been discussed with. Diagnostic Impression: Primary Impression: Constipation Qualified Codes: K59.00 - Constipation, unspecified Additional Impression: Enlargement of liver ER Course 57 YO Female presents to the ED C/O constipation x 1 week. last BM was today but had to significantly strain and had 8/10 in severity pain . pt .reports some left sided low back pain with radiation to the posterior left leg. denies trauma or fall. denies N/V/F/C. Denies diarrhea, blood in the stool or dark tarry stools. Pt. denies abdominal tenderness. Denies hx of hemorrhoids. Reports bloating sensation. Denies hematuria, dysuria or urinary frequency. Pt. is requesting a stool softener. Ddx considered but are not limited to constipation , appendicitis, SBO, ectopic , PID, tubo-ovarian abscess. Vital signs: are WNL, pt. is afebrile H&PE are most consistent with constipation. bowl sounds are normo active. ORDERS: Abdominal KUB: stool in the rectum, liver appears enlarged. normal bowel gas pattern. -UA: Unremarkable Pt. is stable for close outpatient follow up and conservative treatment. She is NAD and non-toxic in appearance. D/w pt. to return promptly to ED with worsening or new symptoms.- Pt. verbalizes' understanding and agreement with proposed treatment plan.proposed treatment plan. DISCHARGE: At this time pt. is stable for d/c to home. Will provide printed patient care instructions, and any necessary prescriptions. Care plan and follow up instructions have been discussed with the patient prior to discharge. Labs Test 02/27/18 14:10 Urine Color Yellow Urine Appearance Slightly cloudy Urine pH 6.5 (4.5-8.0) Urine Specific [place] 1.010 (1.005-1.035) Urine Protein Negative (NEGATIVE) Urine Glucose (UA) Negative (NEGATIVE) Urine Ketones Negative (NEGATIVE) Urine Occult Blood 1+ (NEGATIVE) Urine Nitrite Negative (NEGATIVE) Urine Bilirubin Negative (NEGATIVE) Urine Urobilinogen Normal MG/DL (0.0-1.0) Urine Leukocyte Esterase 1+ (NEGATIVE) Urine RBC 0-2 /HPF (0 - 2) Urine WBC 2-4 /HPF (0 - 2) Urine Squamous Epithelial Cells Few /LPF (NONE/OCC) Urine Bacteria Few /HPF (NONE) Other X-Ray Diagnostic Results Other X-Ray Diagnostic Results : X-Ray ordered: Abdominal KUB # of Views/Limited Vs Complete: 1 View Indication: Pain EP Interpretation: Yes PA Xray: by supervising MD, and agrees with findings. - Dr. Quezada Interpretation: nonspecific bowel gas, no sbo, other - enlarged liver Impression: Other - abnormal : enlarged size of the liver Electronically Signed by: Katie Zaragoza PA-C Last Vital Signs Date Time Temp Pulse Resp B/P (MAP) Pulse Ox O2 Delivery O2 Flow Rate FiO2 02/27/18 13:05 97.9 91 16 144/90 96 Room Air 97.9 Disposition: HOME, SELF-CARE Condition: Stable Scripts Lactulose (LACTULOSE*) 20 Gm/30 Ml Solution 30 ML ORAL BID, #240 ML 0 Refills Prov: Katie Zaragoza 02/27/18 Docusate Sodium* (COLACE*) 100 Mg Capsule 100 MG ORAL THREE TIMES A DAY, #30 CAP Prov: Katie Zaragoza 02/27/18 Referrals: NOT CHOSEN IPA/MD,REFERRING (PCP) Patient Instructions: Constipation, Adult, Hepatomegaly, [id number] Additional Instructions: Take medications as directed. Follow up with a Primary Care Provider in 3-5 days regarding your enlarged liver, even if your symptoms have resolved. --Please review list of primary care clinics, if you do not already have a primary care provider Return sooner to ED if new symptoms occur, or current symptoms become worse - Please note that this Emergency Department Report was dictated using [employer] designer apprentice technology software, occasionally this can lead to erroneous entry secondary to interpretation by the dictation equipment. Katie Zaragoza Feb 27, 2018 15:37
--- NOTE | 2018-02-27 15:39 | Diagnostic Imaging Report ---
Indication: Abdominal pain Technique: Supine view of the abdomen Comparison: 11/15/2016 Findings: Exam is limited by patient body habitus. Bowel gas pattern is unremarkable. No unusual masses or calcifications. Impression: No acute process
[2018-02-27] MEDS ORDERED: LACTULOSE20 GM/301 ORAL (15:41)
[2018-02-27] MEDS ORDERED: COLACE100 MG ORAL (15:41)
[2018-02-27 15:54] VITALS: BP 134/78
== END 2018-02-27 15:54 | disposition home or self-care (01) ==
LOC: EMR 13:50
DX: K59.00 Constipation, unspecified (principal); I10 Essential (primary) hypertension; R16.0 Hepatomegaly, not elsewhere classified
CPT/HCPCS: 74018; 81003; 99283

== ENCOUNTER 2018-09-17 12:27 | Emergency (ER) | payer MEDICARE, OTHER ==
[~2018-09-17] VITALS: Ht 170.2 cm; Wt 88.9 kg
[~2018-09-17 12:27] MED LIST changes: +COLACE100 MG ORAL; +LACTULOSE20 GM/301 ORAL
--- NOTE | 2018-09-17 12:35 | NUR ---
ED Nurse Note: PT WALKED IN TO ER TODAY FROM HOME. AOX4. PT C/O NONPRODUCTIVE COUGH AND CONGESTION X 1 WEEK. PT DENIES ANY PAIN. LUNG SOUNDS CLEAR IN ALL LOBES. NO SIGNS OF RESPIRATORY DISTRESS OR RETRACTIONS NOTED. RR18 @ 98% O2 SAT ON RA.
[2018-09-17 12:36] VITALS: BP 152/86
[2018-09-17] MEDS ORDERED: TESSALON PERLE100 MG ORAL (12:51)
[2018-09-17] MEDS ORDERED: SUDAFED PE PRE1 EAC3 PO (12:51)
[2018-09-17] MEDS ORDERED: IBUPROFEN600 MG ORAL (12:51)
--- NOTE | 2018-09-17 12:52 | Emergency Room Report ---
History of Present Illness General Chief Complaint: Upper Respiratory Illness Present Illness HPI 57-year-old female patient presents the ER complaining of cough and congestion times 1 week. Reports sick contacts at home with similar symptoms. Reports coughing up sputum, denies hemoptysis. Denies recent travel outside the country. Denies fever. States has been taking Mucinex at home. Reports smoking cigarettes during this time. Denies chest pain or shortness of breath. Denies history of heart disease. Denies vomiting or diarrhea. Denies dysuria. Denies other aggravating or relieving factors. Denies syncope. Allergies: Coded Allergies: No Known Allergies (Unverified , 08/04/14) Patient History Past Medical History: see triage record Reviewed Nursing Documentation: PMH: Agreed; PSxH: Agreed Nursing Documentation-PMH Hx Hypertension: Yes Review of Systems All Other Systems: negative except mentioned in HPI Physical Exam Vital Signs Date Time Temp Pulse Resp B/P (MAP) Pulse Ox O2 Delivery O2 Flow Rate FiO2 09/17/18 12:30 98.2 105 20 158/92 98 Room Air Sp02 EP Interpretation: reviewed, normal General Appearance: well appearing, no apparent distress, alert, GCS 15, non- toxic Head: normocephalic, atraumatic Eyes: bilateral eye normal inspection, bilateral eye PERRL ENT: hearing grossly normal, normal pharynx, no angioedema, normal voice, uvula midline, moist mucus membranes Neck: full range of motion, no meningismus, no bony tend Respiratory: lungs clear, normal breath sounds, no rhonchi, no respiratory distress, no accessory muscle use, no wheezing, speaking full sentences Cardiovascular #1: regular rate, rhythm, no edema, normal capillary refill Gastrointestinal: non tender, soft, no mass, non-distended, no guarding, no rebound Musculoskeletal: back normal, digits/nails normal, gait/station normal, normal range of motion, non-tender, no calf tenderness, Maggy's Sign negative Neurologic: alert, oriented x3, responsive, motor strength/tone normal, sensory intact Psychiatric: mood/affect normal Skin: no rash, normal turgor Medical Decision Making PA Attestation Dr. Aguila is my supervising Physician whom patient management has been discussed with. Diagnostic Impression: Primary Impression: Upper respiratory infection ER Course Pt presents to ED c/o cough and congestion x1 week. DDX considered but are not limited to influenza, viral URI, pneumonia, strep throat, rhinitis, sinusitis, otitis media, otitis externa. VITAL SIGNS are WNL, patient is afebrile. ER COURSE: Lungs clear to auscultation, no wheezes, rhonci or rales. patient afebrile. Low suspicion for pneumonia, will not order CXR at this time. Denies chest pain, SOB, does not require cardiac workup at this time. Symptomatic treatment. drink plenty of fluids. Followup with PCP for further treatment and/or referral as needed. ER precautions given. DISCHARGE: At this time pt is stable for d/c to home. Patient is resting comfortably, in no acute distress, nontoxic appearing. Patient to take medications as instructed Will provide with patient care instructions and any necessary prescriptions. Care plan and follow-up instructions provided. Patient instructed to follow-up with primary care provider in 3 - 5 days. Patient questions asked and answered. Patient reports understanding and agreement to treatment plan. ER precautions given. Patient instructed to return to ER immediately for any new or worsening of symptoms including but not limited to increasing SOB, persistent fever, intractable vomiting. - Please note that this Emergency Department Report was dictated using [employer] professor technology software, occasionally this can lead to erroneous entry secondary to interpretation by the dictation equipment. Last Vital Signs Date Time Temp Pulse Resp B/P (MAP) Pulse Ox O2 Delivery O2 Flow Rate FiO2 09/17/18 12:36 98.4 96 18 152/86 98 Room Air Disposition: HOME, SELF-CARE Condition: Stable Scripts Guaifen/Phenyleph/Acetaminophn (Sudafed PE Pressure+Pain+Mucus) 1 Each Tablet 1 EACH PO BID, #24 TAB Prov: Tk Hughes P.A. 09/17/18 Ibuprofen* (MOTRIN*) 600 Mg Tablet 600 MG ORAL Q8H PRN for For Pain, #30 TAB 0 Refills Prov: Tk Hughes.A. 09/17/18 Benzonatate* (TESSALON PERLE*) 100 Mg Capsule 100 MG ORAL THREE TIMES A DAY, #30 PERLE Prov: Tk Hughes P.A. 09/17/18 Patient Instructions: Smoking Cessation, Tips for Success, Upper Respiratory Infection, Adult Additional Instructions: Followup with primary care provider in 3 -5 days. Stop smoking. Take Tylenol or Motrin for pain and fever symptoms if they present. Take medications as directed. Patient questions asked and answered. ER precautions given, patient instructed to return to ER immediately for any new or worsening of symptoms syncope, intractable vomiting, dizziness, abdominal pain, chest pain, shortness of breath. Tk Hughes Sep 17, 2018 12:52
[2018-09-17 12:54] VITALS: BP 146/82
--- NOTE | 2018-09-17 12:55 | NUR ---
ED Nurse Note: PT LAYING PEACEFULLY IN BED IN NAD. AOX4. PRESCRIPTION AND DISCHARGE PAPERWORK EXPLAINED TO PT. PT VERBALIZES UNDERSTANDING AND ALL QUESTIONS WERE ANSWERED. PRESCRIPTION AND DISCHARGE PAPERWORK GIVEN TO PT AND ID WRISTBAND REMOVED. PT WALKED OUT OF ER WITH STEADY GAIT AND ALL BELONGINGS.
== END 2018-09-17 12:57 | disposition home or self-care (01) ==
LOC: EMR 12:45
DX: J06.9 Acute upper respiratory infection, unspecified (principal)
CPT/HCPCS: 99282

== ENCOUNTER 2018-11-07 12:53 | Emergency (ER) | payer MEDICARE, OTHER ==
[~2018-11-07] VITALS: Ht 170.2 cm; Wt 86.2 kg
[~2018-11-07 12:53] MED LIST changes: +SUDAFED PE PRE1 EAC3 PO; +TESSALON PERLE100 MG ORAL
[2018-11-07] MEDS ORDERED: Ketorolac 30mg Inj IM ONE (13:45)
--- NOTE | 2018-11-07 14:32 | Emergency Room Report ---
History of Present Illness General Chief Complaint: Pain Source: Patient Present Illness HPI 57-year-old female presents emergency department complaining of 10 out of 10 in severity with acute onset in the medial upper arm x 1 week. Pt. reports yesterday being bitten by an insect on the dorsum of the right hand and states that now there is warmth and erythema. She denies fevers, chills , trauma/falls. Denies numbness tingling or loss of sensation or gross motor movements of the extremity. Denies CP, Palpitations, LOC, AMS, dizziness, Changes in Vision, weakness or a sudden severe headache. Allergies: Coded Allergies: No Known Allergies (Unverified , 08/04/14) Patient History Past Medical History: see triage record Past Surgical History: none Pertinent Family History: none Reviewed Nursing Documentation: PMH: Agreed; PSxH: Agreed Nursing Documentation-PMH Past Medical History: No History, Except For Hx Hypertension: Yes Review of Systems All Other Systems: negative except mentioned in HPI Physical Exam Vital Signs Date Time Temp Pulse Resp B/P (MAP) Pulse Ox O2 Delivery O2 Flow Rate FiO2 11/07/18 12:57 98.8 114 18 152/74 95 Room Air Sp02 EP Interpretation: reviewed, normal General Appearance: no apparent distress, alert, GCS 15, non-toxic Head: normocephalic, atraumatic Eyes: bilateral eye normal inspection, bilateral eye PERRL ENT: hearing grossly normal, normal voice Neck: full range of motion Respiratory: chest non-tender, lungs clear, normal breath sounds, speaking full sentences Cardiovascular #1: regular rate, rhythm, normal capillary refill Cardiovascular #2: 2+ radial (R), 2+ radial (L) Musculoskeletal: back normal, gait/station normal, normal range of motion, tender - TTP dorsum of the right hand, and medial upper extremity, FROM, no obvious deformities or weakness. Neurologic: alert, oriented x3, responsive, motor strength/tone normal, sensory intact, speech normal, no pronator, grossly normal Psychiatric: judgement/insight normal Skin: no rash, warm/dry, well hydrated, other - erythema, warmth and swelling to localized area of the right hand on the dorsal aspect. Medical Decision Making PA Attestation Dr. Castellano is my supervising physician whom pt. management has been discussed with. Diagnostic Impression: Primary Impression: Cellulitis Qualified Codes: L03.113 - Cellulitis of right upper limb ER Course 57-year-old female presents emergency department complaining of 10 out of 10 in severity with acute onset in the medial upper arm x 1 week. Pt. reports yesterday being bitten by an insect on the dorsum of the right hand and states that now there is warmth and erythema. She denies fevers, chills , trauma/falls. Denies numbness tingling or loss of sensation or gross motor movements of the extremity. Denies CP, Palpitations, LOC, AMS, dizziness, Changes in Vision, weakness or a sudden severe headache. . Ddx considered but are not limited to Cellulitis, DVT, Cellulitis, sprain/ strain just to name a few. Vital signs: are WNL, pt. is afebrile H&PE are most consistent with myalgia of the right arm, and cellulitis of the right hand, will r/o DVT PT. NVI, no obvious deformities or rash ORDERS: Venous duplex ultrasound of the right upper extremity which was negative for DVT ED INTERVENTIONS: -Toradol IM -Tylenol PO DISCHARGE: At this time pt. is stable for d/c to home. Will provide printed patient care instructions, and any necessary prescriptions. Care plan and follow up instructions have been discussed with the patient prior to discharge. CT/MRI/US Diagnostic Results CT/MRI/US Diagnostic Results : Imaging Test Ordered: Venous Duplex US Right Upper Extremity. Impression Negative for DVT Last Vital Signs Date Time Temp Pulse Resp B/P (MAP) Pulse Ox O2 Delivery O2 Flow Rate FiO2 11/07/18 12:57 98.8 114 18 152/74 95 Room Air Status: improved Disposition: HOME, SELF-CARE Condition: Stable Scripts Ibuprofen* (MOTRIN*) 600 Mg Tablet 600 MG ORAL THREE TIMES A DAY, #30 TAB 0 Refills Prov: Katie Zaragoza 11/07/18 Diclofenac Sodium (VOLTAREN) 100 Gm Gel..gram. 1 APPLIC TP Q6HR, #100 GM Prov: Katie Zaragoza 11/07/18 Acetaminophen With Codeine (T#3) (TYLENOL #3 TAB*) Y Tab 1 TAB ORAL Q6H PRN for For Pain, #12 TAB Prov: Katie Zaragoza 11/07/18 Trimethoprim/Sulfamethoxazole 160/800* (BACTRIM DS TABLET*) 1 Each Tablet 1 TAB ORAL TWICE A DAY for 7 Days, #14 TAB Prov: Katie Zaragoza 11/07/18 Cephalexin* (KEFLEX*) 500 Mg Capsule 500 MG ORAL EVERY 12 HOURS for 7 Days, #14 CAP 0 Refills Prov: Katie Zaragoza 11/07/18 Patient Instructions: Cellulitis, [id number] Additional Instructions: Take medications as directed. Follow up with a Primary Care Provider in 3-5 days, even if your symptoms have resolved. --Please review list of primary care clinics, if you do not already have a primary care provider Return sooner to ED if new symptoms occur, or current symptoms become worse. Do not drink alcohol, drive, or operate heavy machinery while taking Tylenol #3 as this may cause drowsiness. - Please note that this Emergency Department Report was dictated using [employer] Technologiesstat[employer] secretary technology software, occasionally this can lead to erroneous entry secondary to interpretation by the dictation equipment. Katie Zaragoza Nov 07, 2018 14:32
[2018-11-07 14:38] VITALS: BP 146/87
[2018-11-07] MEDS ORDERED: VOLTAREN100 G1 TP (15:01)
[2018-11-07] MEDS ORDERED: CEPHALEXIN500 MG ORAL (15:01)
[2018-11-07] MEDS ORDERED: ACETAMINOPHEN-1 EAC1 ORAL (15:01)
[2018-11-07] MEDS ORDERED: BACTRIM DS TAB1 EAC1 ORAL (15:01)
[2018-11-07] MEDS ORDERED: IBUPROFEN600 MG ORAL (15:16)
[2018-11-07 15:23] VITALS: BP 146/87
--- NOTE | 2018-11-07 17:08 | Diagnostic Imaging Report ---
Indication: Right arm pain Technique: Grayscale and duplex images of the right upper extremity veins Comparison: none Findings: Grayscale and duplex images demonstrate no evidence of intraluminal thrombus. Normal phasic Doppler waveforms, demonstrating normal augmentation response and no evidence of valvular insufficiency. Normal compressibility. Impression: Negative right upper extremity venous thrombosis
== END 2018-11-07 15:20 | disposition home or self-care (01) ==
LOC: EMR 14:34
DX: L03.113 Cellulitis of right upper limb (principal); I10 Essential (primary) hypertension
CPT/HCPCS: 93971; 96372; 99284; J1885

== ENCOUNTER 2018-12-05 10:21 | Emergency (ER) | payer MEDICARE, OTHER ==
[~2018-12-05] VITALS: Ht 170.2 cm; Wt 86.2 kg
[~2018-12-05 10:21] MED LIST changes: +ACETAMINOPHEN-1 EAC1 ORAL; +BACTRIM DS TAB1 EAC1 ORAL; +VOLTAREN100 G1 TP
[2018-12-05 10:34] VITALS: BP 150/94
[2018-12-05] MEDS ORDERED: INDOCIN75 MG ORAL (11:28)
[2018-12-05] MEDS ORDERED: CEPHALEXIN500 MG ORAL (11:28)
[2018-12-05] MEDS ORDERED: BACTRIM DS TAB1 EAC1 ORAL (11:28)
[2018-12-05 11:41] VITALS: BP 150/94
[2018-12-06] MEDS ORDERED: NAPROXEN500 M1 ORAL (15:38)
--- NOTE | 2018-12-07 14:10 | Emergency Room Report ---
History of Present Illness General Chief Complaint: Pain Source: Patient Present Illness HPI 57-year-old female presents ED for evaluation of right foot pain and swelling. Started 3 days ago. Pain is throbbing, 8 out of 10, nonradiating. Denies fevers or chills. Denies any recent fall or injury. No other aggravating relieving factors. Denies any other associated symptoms Allergies: Coded Allergies: No Known Allergies (Unverified , 08/04/14) Patient History Past Medical History: HTN Past Surgical History: none Pertinent Family History: none Social History: Denies: smoking, alcohol use, drug use Now: No Immunizations: UTD Reviewed Nursing Documentation: PMH: Agreed; PSxH: Agreed Nursing Documentation-PMH Past Medical History: No History, Except For Hx Hypertension: Yes Review of Systems All Other Systems: negative except mentioned in HPI Physical Exam Vital Signs Date Time Temp Pulse Resp B/P (MAP) Pulse Ox O2 Delivery O2 Flow Rate FiO2 12/05/18 10:34 98.2 18 150/94 97 Room Air 12/05/18 10:34 102 Sp02 EP Interpretation: reviewed, normal General Appearance: no apparent distress, alert, GCS 15, non-toxic Head: normocephalic, atraumatic Eyes: bilateral eye normal inspection, bilateral eye PERRL ENT: hearing grossly normal, normal pharynx, no angioedema, normal voice Neck: full range of motion, supple/symm/no masses Respiratory: chest non-tender, lungs clear, normal breath sounds, speaking full sentences Cardiovascular #1: regular rate, rhythm, no edema Cardiovascular #2: 2+ carotid (R), 2+ carotid (L), 2+ radial (R), 2+ radial (L) , 2+ dorsalis pedis (R), 2+ dorsalis pedis (L) Gastrointestinal: normal bowel sounds, non tender, soft, non-distended, no guarding, no rebound Rectal: deferred Genitourinary: normal inspection, no CVA tenderness Musculoskeletal: back normal, gait/station normal, normal range of motion, swelling - R foot Neurologic: alert, oriented x3, responsive, motor strength/tone normal, sensory intact, speech normal Psychiatric: judgement/insight normal, memory normal, mood/affect normal, no suicidal/homicidal ideation Reflexes: 3+ bicep (R), 3+ bicep (L), 3+ tricep (R), 3+ tricep (L), 3+ knee (R) , 3+ knee (L) Skin: other - erythema/induration R foot Lymphatic: no adenopathy Medical Decision Making Diagnostic Impression: Primary Impression: Cellulitis of foot ER Course Hospital Course 57 yo F presents with R foot pain/swelling. no injury Differential diagnoses include: Fracture, dislocation, sprain, contusion, bursitis, septic joint Clinical course Patient placed on stretcher. After initial history, physical exam reveals a middle aged female in no acute distress. There is swelling and erythema to the R foot. No fluctuance. Patient appears well and nontoxic. No signs of injury. Patient is not a diabetic. Consideration for cellulitis versus out. Patient denies any history of gout. When I reviewed EMR there was prior visit for joint swelling and gout was discussed with the patient as a option. When I discussed this with the patient today she states she did not remember and she states she did not follow-up with any specific provider I explained that we will treat for both gout and infection. We'll prescribe antibiotics and anti-inflammatories. We'll provide orthopedic referral. Safe for discharge close outpatient follow-up Diagnosis - cellulitis of foot Stable and discharged to home with prescription for indomethacin, bactrim, keflex. Followup with PMD/ortho. Return to ED if symptoms recur or worsen Last Vital Signs Date Time Temp Pulse Resp B/P (MAP) Pulse Ox O2 Delivery O2 Flow Rate FiO2 12/05/18 11:41 98.2 18 150/94 97 Room Air 12/05/18 10:34 102 Status: improved Disposition: HOME, SELF-CARE Condition: Stable Scripts Naproxen* (NAPROXEN*) 500 Mg Tablet.dr 500 MG ORAL TWICE A DAY for 7 Days, #14 TAB Prov: Katie Zaragoza 12/06/18 Indomethacin (Indocin) 75 Mg Capsule.er 75 MG ORAL BID for 7 Days, CAP Prov: Sreedhar Valentino MD 12/05/18 Trimethoprim/Sulfamethoxazole 160/800* (BACTRIM DS TABLET*) 1 Each Tablet 1 TAB ORAL TWICE A DAY for 7 Days, #14 TAB Prov: Sreedhar Valentino MD 12/05/18 Cephalexin* (KEFLEX*) 500 Mg Capsule 500 MG ORAL EVERY 12 HOURS for 7 Days, #14 CAP 0 Refills Prov: Sreedhar Valentino MD 12/05/18 Referrals: NOT CHOSEN IPA/MD,REFERRING (PCP) [facility] Open 24 hour /7 days a week by Appointment Only [address] [facility] [address] Patient Instructions: Gout, [id number], Cellulitis, [id number] Sreedhar Valentino MD December 07, 2018 14:10
== END 2018-12-05 11:40 | disposition home or self-care (01) ==
LOC: EMR 10:54
DX: L03.115 Cellulitis of right lower limb (principal); I10 Essential (primary) hypertension
CPT/HCPCS: 99282

== ENCOUNTER 2019-03-29 12:42 | Emergency (ER) | payer MEDICARE, OTHER ==
[~2019-03-29] VITALS: Ht 170.2 cm; Wt 86.2 kg
[~2019-03-29 12:42] MED LIST changes: +NAPROXEN500 M1 ORAL
[2019-03-29 12:52] VITALS: BP 150/97
[2019-03-29] MEDS ORDERED: Acetaminophen 500mg (ES) tab ORAL ONE (13:00)
[2019-03-29] MEDS ORDERED: Ketorolac 60mg Inj IM ONE (13:00)
--- NOTE | 2019-03-29 13:01 | NUR ---
ED Nurse Note: Pt came in due to right lower back pain and RLQ abd pain x 2 days. Pt fell 1 week ago. Denies difficulty in urination and states that her last bowel movement was this morning but was very small in size. AAO x4 ambulatory, with non labored breathing. Noted facial grimacing when RLQ palpated by Dr Navarro.
[2019-03-29] MEDS ORDERED: Isovue-300 100ml vial INJ PRN (13:15)
[2019-03-29] MEDS ORDERED: Morphine Sulfate 4mg/ml Inj (IV USE ONLY) IVP ONE (13:15)
--- NOTE | 2019-03-29 13:31 | Diagnostic Imaging Report ---
EXAM: XR Chest, 1 View CLINICAL HISTORY: PREOP TECHNIQUE: Frontal view of the chest. COMPARISON: No relevant prior studies available. FINDINGS: Lungs: No consolidation. Pleural space: Unremarkable. No pneumothorax. Heart: Unremarkable. No cardiomegaly. Mediastinum: Unremarkable. Bones joints: No acute fracture. IMPRESSION: No acute cardiopulmonary disease.
--- NOTE | 2019-03-29 13:32 | NUR ---
ED Nurse Note: pt went down for CT scan in stable condition.
[2019-03-29 13:39] LABS: APPEARANCE,URINE CLEAR; BILIRUBIN, URINE NEGATIVE (NEGATIVE); COLOR,URINE PALE YELLOW; GLUCOSE, URINE (UA) NEGATIVE (NEGATIVE); KETONES,URINE NEGATIVE (NEGATIVE); LEUKOCYTE ESTERASE ,URINE NEGATIVE (NEGATIVE); NITRITE,URINE NEGATIVE (NEGATIVE); PH,URINE 7 (4.5-8.0); PROTEIN,URINE NEGATIVE (NEGATIVE); UROBILINOGEN,URINE NORMAL MG/DL (0.0-1.0)
[2019-03-29 13:40] LABS: BASOPHILS % (AUTO) 1.3 % (0.0-2.0); EOSINOPHILS % (AUTO) 0.9 % (0.0-3.0); HEMATOCRIT 42.1 % (37.0-47.0); HEMOGLOBIN 14.1 G/DL (12.0-16.0); MEAN CORPUSCULAR VOLUME 95 FL (80-99); MONOCYTES % (AUTO) 5.8 % (1.0-10.0); NEUTROPHILS % (AUTO) 69.1 % (45.0-75.0); PLATELET COUNT 403 K/UL (150-450); RED BLOOD COUNT 4.45 M/UL (4.20-5.40); RED CELL DISTRIBUTION WIDTH 11.6 % (11.6-14.8); WHITE BLOOD COUNT 14.5 K/UL (4.8-10.8)
[2019-03-29 13:47] LABS: ANION GAP 11 mmol/L (5-15); BLOOD UREA NITROGEN 9 mg/dL (7-18); CALCIUM 9.7 MG/DL (8.5-10.1); CARBON DIOXIDE 25 MMOL/L (21-32); CHLORIDE 107 MMOL/L (98-107); CREATININE 0.8 MG/DL (0.55-1.30); POTASSIUM 4.1 MMOL/L (3.5-5.1); SODIUM 143 MMOL/L (136-145)
--- NOTE | 2019-03-29 13:51 | NUR ---
ED Nurse Note: pt came back from CT in stable condition.
[2019-03-29 13:52] LABS: ALANINE AMINOTRANSFERASE 16 U/L (12-78); ALBUMIN 3.8 G/DL (3.4-5.0); ALKALINE PHOSPHATASE 68 U/L (46-116); ASPARTATE AMINO TRANSFERASE 8 U/L (15-37); BILIRUBIN,TOTAL 0.8 MG/DL (0.2-1.0)
--- NOTE | 2019-03-29 14:11 | Emergency Room Report ---
History of Present Illness General Chief Complaint: Lower Back Pain or Injury Source: Patient, Medical Record Present Illness HPI 58-year-old female presents with right lower quadrant pain x2 days, no aggravating or alleviating factors, she endorses a moderate sharp achy pain severity is moderate, constant no diarrhea, no nausea no vomiting, she states there is something there. Patient presents for evaluation. Allergies: Coded Allergies: No Known Allergies (Unverified , 08/04/14) Patient History Past Medical History: see triage record Last Menstrual Period: N/A Reviewed Nursing Documentation: PMH: Agreed; PSxH: Agreed Nursing Documentation-PMH Hx Hypertension: Yes Review of Systems All Other Systems: negative except mentioned in HPI Physical Exam Vital Signs Date Time Temp Pulse Resp B/P (MAP) Pulse Ox O2 Delivery O2 Flow Rate FiO2 03/29/19 12:52 99.1 105 18 150/97 (114) 96 Room Air Sp02 EP Interpretation: reviewed, normal General Appearance: well appearing, no apparent distress, alert Head: normocephalic, atraumatic Eyes: bilateral eye PERRL, bilateral eye EOMI ENT: uvula midline, moist mucus membranes Neck: supple, thyroid normal, supple/symm/no masses Respiratory: lungs clear, no respiratory distress, no retraction, no accessory muscle use Cardiovascular #1: normal peripheral pulses, regular rate, rhythm, no edema, no gallop, no murmur Gastrointestinal: soft, no guarding, no rebound, tenderness - Moderate tenderness right lower quadrant no rebound no guarding Musculoskeletal: normal inspection Neurologic: alert, oriented x3 Psychiatric: mood/affect normal Skin: no rash, warm/dry Medical Decision Making Diagnostic Impression: Primary Impression: Low back pain Qualified Codes: M54.5 - Low back pain Additional Impression: Abdominal pain Qualified Codes: R10.31 - Right lower quadrant pain ER Course 58 year-old female presents with right lower quadrant pain, no diarrhea, differential diagnosis includes appendicitis diverticulitis, gallbladder disease , Patient with negative CT scan labs show an elevated leukocytosis may be a stress reaction, UA negative, Patient does endorse some constipation possible functional abdominal pain secondary to constipation will disposition patient home with return Precautions , bowel regimen ordered Laboratory Tests Test 03/29/19 13:15 White Blood Count 14.5 K/UL (4.8-10.8) H Red Blood Count 4.45 M/UL (4.20-5.40) Hemoglobin 14.1 G/DL (12.0-16.0) Hematocrit 42.1 % (37.0-47.0) Mean Corpuscular Volume 95 FL (80-99) Mean Corpuscular Hemoglobin 31.7 PG (27.0-31.0) H Mean Corpuscular Hemoglobin Concent 33.5 G/DL (32.0-36.0) Red Cell Distribution Width 11.6 % (11.6-14.8) Platelet Count 403 K/UL (150-450) Mean Platelet Volume 6.2 FL (6.5-10.1) L Neutrophils (%) (Auto) 69.1 % (45.0-75.0) Lymphocytes (%) (Auto) 23.0 % (20.0-45.0) Monocytes (%) (Auto) 5.8 % (1.0-10.0) Eosinophils (%) (Auto) 0.9 % (0.0-3.0) Basophils (%) (Auto) 1.3 % (0.0-2.0) Urine Color Pale yellow Urine Appearance Clear Urine pH 7 (4.5-8.0) Urine Specific [place] 1.005 (1.005-1.035) Urine Protein Negative (NEGATIVE) Urine Glucose (UA) Negative (NEGATIVE) Urine Ketones Negative (NEGATIVE) Urine Blood Negative (NEGATIVE) Urine Nitrite Negative (NEGATIVE) Urine Bilirubin Negative (NEGATIVE) Urine Urobilinogen Normal MG/DL (0.0-1.0) Urine Leukocyte Esterase Negative (NEGATIVE) Sodium Level 143 MMOL/L (136-145) Potassium Level 4.1 MMOL/L (3.5-5.1) Chloride Level 107 MMOL/L (98-107) Carbon Dioxide Level 25 MMOL/L (21-32) Anion Gap 11 mmol/L (5-15) Blood Urea Nitrogen 9 mg/dL (7-18) Creatinine 0.8 MG/DL (0.55-1.30) Estimate Glomerular Filtration Rate > 60 mL/min (>60) Glucose Level 94 MG/DL (74-106) Calcium Level 9.7 MG/DL (8.5-10.1) Total Bilirubin 0.8 MG/DL (0.2-1.0) Aspartate Amino Transferase (AST) 8 U/L (15-37) L Alanine Aminotransferase (ALT) 16 U/L (12-78) Alkaline Phosphatase 68 U/L (46-116) Total Protein 7.5 G/DL (6.4-8.2) Albumin 3.8 G/DL (3.4-5.0) Globulin 3.7 g/dL Albumin/Globulin Ratio 1.0 (1.0-2.7) Lipase 91 U/L (73-393) EKG Diagnostic Results EKG Time: 13:20 EP Interpretation: NSR, rate 89, QTc 479, no acute ST elevations, normal axis Chest X-Ray Diagnostic Results Chest X-Ray Diagnostic Results : Chest X-Ray Ordered: Yes # of Views/Limited/Complete: 1 View Indication: Other - preop EP Interpretation: Yes Interpretation: no consolidation, no effusion, no pneumothorax, no acute cardiopulmonary disease Impression: No acute disease Electronically Signed by: Gianluca Navarro MD CT/MRI/US Diagnostic Results CT/MRI/US Diagnostic Results : Impression Final Report EXAM: CT Abdomen and Pelvis With Intravenous Contrast CLINICAL HISTORY: ABD PAIN TECHNIQUE: Axial computed tomography images of the abdomen and pelvis with intravenous contrast. CTDI is 17.73 mGy and DLP is 938 mGy-cm. One or more of the following dose reduction techniques were used: automated exposure control, adjustment of the mA and/or kV according to patient size, use of iterative reconstruction technique. COMPARISON: No relevant prior studies available. FINDINGS: Lung bases: Unremarkable. ABDOMEN: Liver: Too small to characterize low-attenuation focus in the left lobe of the liver. Gallbladder and bile ducts: No calcified stones. No ductal dilation. Pancreas: Unremarkable. Spleen: Unremarkable. Adrenals: Unremarkable. Kidneys and ureters: Right nephrolithiasis. No hydronephrosis. Stomach and bowel: Colonic diverticula without diverticulitis. PELVIS: Appendix: Unremarkable appendix. Bladder: Unremarkable. Reproductive: Unremarkable. ABDOMEN and PELVIS: Intraperitoneal space: Unremarkable. Bones/joints: No acute fracture. Soft tissues: Lipoma in the left lateral chest wall. Vasculature: Unremarkable. No abdominal aortic aneurysm. Lymph nodes: No enlarged lymph nodes. IMPRESSION: 1. Unremarkable appendix. 2. Colonic diverticula without diverticulitis. Radiologist: Ganga Jaimes M.D. Electronically Signed: 03/29/19 14:44 Study ready at 13:56 and initial results transmitted at 14:44 Ultrasound gallbladder unremarkable large liver. Last Vital Signs Date Time Temp Pulse Resp B/P (MAP) Pulse Ox O2 Delivery O2 Flow Rate FiO2 03/29/19 13:49 99.1 03/29/19 12:52 105 18 150/97 96 Room Air Disposition: HOME, SELF-CARE Condition: Stable Scripts Polyethylene Glycol 3350* (MIRALAX*) 17 Gm Powd.pack 17 GM ORAL DAILY, #30 PACKET Prov: Gianluca Navarro MD 03/29/19 Docusate Sodium (DOCUSATE SODIUM) 100 Mg Tablet 100 MG ORAL TWICE A DAY, #60 TAB 0 Refills Prov: Gianluca Navarro MD 03/29/19 Naproxen* (NAPROSYN*) 250 Mg Tablet 250 MG ORAL BID PRN for For Pain, #20 TAB 0 Refills Prov: Gianluca Navarro MD 03/29/19 Referrals: NOT CHOSEN IPA/,REFERRING (PCP) [facility]. [facility] Patient Instructions: Abdominal Pain, Adult, Back Pain, Adult Additional Instructions: The patient was provided with discharge instructions, notified to follow-up with a primary care doctor and or specialist in the next 24-48 hours, and to return to the ED if they have worsening of their symptoms. Please note that this report is being documented using [employer] technology. This can lead to erroneous entry secondary to incorrect interpretation by the dictating instrument. Gianluca Navarro MD Mar 29, 2019 14:11
[2019-03-29 14:45] VITALS: BP 145/90
--- NOTE | 2019-03-29 14:45 | Diagnostic Imaging Report ---
EXAM: CT Abdomen and Pelvis With Intravenous Contrast CLINICAL HISTORY: ABD PAIN TECHNIQUE: Axial computed tomography images of the abdomen and pelvis with intravenous contrast. CTDI is 17.73 mGy and DLP is 938 mGy-cm. One or more of the following dose reduction techniques were used: automated exposure control, adjustment of the mA and or kV according to patient size, use of iterative reconstruction technique. COMPARISON: No relevant prior studies available. FINDINGS: Lung bases: Unremarkable. ABDOMEN: Liver: Too small to characterize low-attenuation focus in the left lobe of the liver. Gallbladder and bile ducts: No calcified stones. No ductal dilation. Pancreas: Unremarkable. Spleen: Unremarkable. Adrenals: Unremarkable. Kidneys and ureters: Right nephrolithiasis. No hydronephrosis. Stomach and bowel: Colonic diverticula without diverticulitis. PELVIS: Appendix: Unremarkable appendix. Bladder: Unremarkable. Reproductive: Unremarkable. ABDOMEN and PELVIS: Intraperitoneal space: Unremarkable. Bones joints: No acute fracture. Soft tissues: Lipoma in the left lateral chest wall. Vasculature: Unremarkable. No abdominal aortic aneurysm. Lymph nodes: No enlarged lymph nodes. IMPRESSION: 1. Unremarkable appendix. 2. Colonic diverticula without diverticulitis.
[2019-03-29] MEDS ORDERED: DOCUSATE SODIU100 M2 ORAL (15:03)
[2019-03-29] MEDS ORDERED: NAPROXEN250 MG ORAL (15:03)
[2019-03-29] MEDS ORDERED: MIRALAX17 G2 ORAL (15:03)
[2019-03-29 15:07] VITALS: BP 148/87
--- NOTE | 2019-03-29 15:07 | NUR ---
ER DISCHARGE NOTE: Patient is cleared to be discharged per ERMD, pt is aox4, on room air, with stable vital signs. pt was given dc and prescription instructions, pt was able to verbalize understanding, pt id band and iv site removed without complications. pt is able to ambulate with steady gait. pt took all belongings and left with her family member.
--- NOTE | 2019-03-29 15:53 | Diagnostic Imaging Report ---
EXAM: US Abdomen Limited, Right Upper Quadrant CLINICAL HISTORY: ABD PAIN TECHNIQUE: Real-time ultrasound of the right upper quadrant with image documentation. COMPARISON: No relevant prior studies available. FINDINGS: Liver: Hepatomegaly or Rufino's lobe, 20 cm Gallbladder: Unremarkable. No gallstones. Common bile duct: Unremarkable as visualized. Pancreas: Unremarkable as visualized Right kidney: No hydronephrosis. IMPRESSION: No acute findings.
--- NOTE | 2019-03-31 11:18 | Cardiology Report ---
APPROVED REPORT EKG Measurement Heart [id number] Normal sinus rhythm Nonspecific ST abnormality Abnormal ECG
== END 2019-03-29 15:07 | disposition home or self-care (01) ==
LOC: EMR 13:42
DX: R10.31 Right lower quadrant pain (principal); M54.5 Low back pain; I10 Essential (primary) hypertension
CPT/HCPCS: 36415; 71045; 74177; 76700; 80053; 81003; 82962; 83690; 85025; 93005; 96372; 96374; 96375; 99284; J2270; J2405; Q9967

== ENCOUNTER 2019-11-03 14:09 | Emergency (ER) | payer MEDICARE, OTHER ==
[~2019-11-03] VITALS: Ht 170.2 cm; Wt 86.2 kg
[~2019-11-03 14:09] MED LIST changes: +COLCHICINE0.6 M1 PO; +DOCUSATE SODIU100 M2 ORAL; +INDOCIN25 MG ORAL; +MIRALAX17 G2 ORAL; +NAPROXEN250 MG ORAL
[2019-11-03 14:12] VITALS: BP 157/94
[2019-11-03] MEDS ORDERED: Ketorolac 60mg Inj IM ONE (14:30)
--- NOTE | 2019-11-03 14:30 | Emergency Room Report ---
History of Present Illness General Chief Complaint: Pain Source: Patient Present Illness HPI Patient is a 58-year-old female presents after increased left-sided lower extremity discomfort. Patient reports having pain for approximate 1 month. Associated tingling to the middle 3 toes. Reports having prior history of low back pain as well as gout. She reports having some initial swelling which had improved. Denies any recent fevers. Denies any recent trauma. Had previous prescribed medications for gouty arthritis. Denies taking any steroids currently. Denies any recent procedures. Reports having improvement in swelling. Denies any weakness. Reports normal ambulation. Denies any bowel or bladder dysfunction. Denies any vomiting or diarrhea. Allergies: Coded Allergies: No Known Allergies (Unverified , 08/04/14) COVID-19 Screening Contact w/high risk pt: No Recent Travel to affected area: No Experienced COVID-19 symptoms?: No Patient History Past Medical History: see triage record Reviewed Nursing Documentation: PMH: Agreed; PSxH: Agreed Nursing Documentation-PM Past Medical History: No History, Except For Hx Hypertension: Yes Review of Systems All Other Systems: negative except mentioned in HPI Physical Exam Vital Signs Date Time Temp Pulse Resp B/P (MAP) Pulse Ox O2 Delivery O2 Flow Rate FiO2 11/03/19 14:12 98.6 117 20 157/94 97 Room Air General Appearance: well appearing, no apparent distress, alert, GCS 15, non- toxic Head: normocephalic, atraumatic ENT: hearing grossly normal, normal voice Neck: full range of motion, supple Respiratory: lungs clear, normal breath sounds, no respiratory distress, speaking full sentences Gastrointestinal: normal inspection, non tender, soft Musculoskeletal: normal inspection, normal range of motion, no calf tenderness Neurologic: alert, motor strength/tone normal, tube room cashier III-XII nml as tested, oriented x3, normal gait Psychiatric: normal inspection, judgement/insight normal, mood/affect normal Skin: normal inspection, normal color, no rash Medical Decision Making Diagnostic Impression: Primary Impression: Radicular leg pain ER Course Patient presented for left leg discomfort. Differential diagnosis include was not limited to cellulitis, vascular compromise, peripheral nerve disease, sciatica among others. Patient has a benign exam and does not appear to require any imaging or laboratory testing at this time. Patient's exam and history is consistent with a radicular pain to the left leg. This appears to be present for a prolonged period of time. Patient does not know of any known malignancies. Does not appear to have any evidence of acute distress. Appears stable for outpatient follow-up with her primary care physician. Patient be given prescription for medication for symptomatic treatment. Advised to return if worse. The patient is advised to follow up with primary care doctor in 2-3 days. Patient is advised to return if any worsening condition or if any changes in status that are concerning. This report is dictated with [employer] business director software which may occasionally lead to discrepancies related to use of this software. Last Vital Signs Date Time Temp Pulse Resp B/P (MAP) Pulse Ox O2 Delivery O2 Flow Rate FiO2 11/03/19 14:12 98.6 117 20 157/94 (115) 97 11/03/19 14:12 Room Air Status: improved Disposition: HOME, SELF-CARE Condition: Stable Scripts Ascorbic Acid* (VITAMIN C*) 500 Mg Tablet 500 MG ORAL TWICE A DAY, #30 TAB Prov: Seamus Quezada MD 11/03/19 Gabapentin* (GABAPENTIN*) 300 Mg Capsule 300 MG ORAL THREE TIMES A DAY, #30 CAP 0 Refills Prov: Seamus Quezada MD 11/03/19 Seamus Quezada MD Nov 03, 2019 14:30
[2019-11-03] MEDS ORDERED: GABAPENTIN300 MG ORAL (14:33)
[2019-11-03] MEDS ORDERED: VITAMIN C500 M1 ORAL (14:33)
[2019-11-03 14:40] VITALS: BP 152/90
== END 2019-11-03 14:40 | disposition home or self-care (01) ==
LOC: EMR 14:28
DX: M54.10 Radiculopathy, site unspecified (principal); I10 Essential (primary) hypertension
CPT/HCPCS: 96372; 99283

== ENCOUNTER 2020-02-07 11:40 | Emergency (ER) | payer MEDICARE, OTHER ==
[~2020-02-07] VITALS: Ht 170.2 cm; Wt 86.2 kg
[~2020-02-07 11:40] MED LIST changes: +GABAPENTIN300 MG ORAL; +VITAMIN C500 M1 ORAL
--- NOTE | 2020-02-07 12:00 | NUR ---
ED Nurse Note: pt walked in to ED due to swelling on left lower arm for 2 days. pt denies any injury or trauma. local fever noted. limited ROM noted due to pain. AAO x4. respirations even and non-labored noted. skin intact. will wait for the further order.
[2020-02-07] MEDS ORDERED: INDOMETHACIN25 MG PO (12:12)
[2020-02-07] MEDS ORDERED: AUGMENTIN 875-1 EAC1 ORAL (12:12)
[2020-02-07] MEDS ORDERED: Augmentin 875mg Tab ORAL ONE (12:15)
[2020-02-07] MEDS ORDERED: INDOMETHACIN 75 MG ORAL ONE (12:15)
--- NOTE | 2020-02-07 12:21 | NUR ---
ER DISCHARGE NOTE: Patient is cleared to be discharged per ERMD, pt is aox4, on room air, with stable vital signs. pt was given dc and prescription instructions, pt was able to verbalize understanding, pt id band removed. pt is able to ambulate with steady gait. pt took all belongings.
[2020-02-07 12:22] VITALS: BP 155/78
--- NOTE | 2020-02-07 14:21 | Emergency Room Report ---
History of Present Illness General Chief Complaint: Edema Source: Patient Present Illness HPI 59-year-old female presents the ED for evaluation. Complaining of swelling and pain to the right left wrist. Started 2 days ago. Denies any fall or injury. States there is redness and swelling to the left wrist extending to mid forearm. Pain is throbbing, 7 out of 10, nonradiating. Denies fevers or chills. No other aggravating relieving factors. Denies any other associated symptoms Allergies: Coded Allergies: No Known Allergies (Unverified , 08/04/14) COVID-19 Screening Contact w/high risk pt: No Recent Travel to affected area: No Experienced COVID-19 symptoms?: No COVID-19 Testing performed PAINT STOCKMAN: No Patient History Past Medical History: HTN Past Surgical History: none Pertinent Family History: none Social History: Denies: smoking, alcohol use, drug use Now: No Immunizations: UTD Reviewed Nursing Documentation: PMH: Agreed; PSxH: Agreed Nursing Documentation-PMH Past Medical History: No History, Except For Hx Hypertension: Yes Review of Systems All Other Systems: negative except mentioned in HPI Physical Exam Vital Signs Date Time Temp Pulse Resp B/P (MAP) Pulse Ox O2 Delivery O2 Flow Rate FiO2 02/07/20 11:45 98.6 115 21 159/82 (107) 96 Room Air Sp02 EP Interpretation: reviewed, normal General Appearance: no apparent distress, alert, GCS 15, non-toxic Head: normocephalic, atraumatic Eyes: bilateral eye normal inspection, bilateral eye PERRL ENT: hearing grossly normal, normal pharynx, no angioedema, normal voice Neck: full range of motion, supple/symm/no masses Respiratory: chest non-tender, lungs clear, normal breath sounds, speaking full sentences Cardiovascular #1: regular rate, rhythm, no edema Cardiovascular #2: 2+ carotid (R), 2+ carotid (L), 2+ radial (R), 2+ radial (L) , 2+ dorsalis pedis (R), 2+ dorsalis pedis (L) Gastrointestinal: normal bowel sounds, non tender, soft, non-distended, no guarding, no rebound Rectal: deferred Genitourinary: normal inspection, no CVA tenderness Musculoskeletal: back normal, normal range of motion, gait/station normal, non- tender Neurologic: alert, motor strength/tone normal, oriented x3, sensory intact, responsive, speech normal Psychiatric: judgement/insight normal, memory normal, mood/affect normal, no suicidal/homicidal ideation Reflexes: 3+ bicep (R), 3+ bicep (L), 3+ tricep (R), 3+ tricep (L), 3+ knee (R) , 3+ knee (L) Skin: other - erythema/induration L wrist, extending to midforearm. no fluctuance or discharge Lymphatic: no adenopathy Medical Decision Making Diagnostic Impression: Primary Impression: Cellulitis of arm Qualified Codes: L03.114 - Cellulitis of left upper limb ER Course Hospital Course 59-year-old female presents with pain and swelling to left wrist Differential diagnoses include: Cellulitis, dermatitis, insect bite, abscess Clinical course Patient placed on stretcher. After initial history, physical exam reveals a female in no acute distress. On exam there is erythema and induration to the left wrist extending to the mid forearm. No bruising or crepitus. Afebrile, nontoxic-appearing. Vitals stable. I discussed findings with patient. Consideration for cellulitis versus gout. Patient does have history of gout to multiple joints. However the the induration extending to the mid forearm makes cellulitis more likely Given antibiotics here. Given indomethacin. Will discharge home. Does not have a PMD. I will provide referrals Diagnosis - cellulitis of arm stable and discharged to home with prescription for Indomethacin, Augmentin. Instructed to followup with PMD. Instructed return to ED if symptoms recur or worsen Last Vital Signs Date Time Temp Pulse Resp B/P (MAP) Pulse Ox O2 Delivery O2 Flow Rate FiO2 02/07/20 12:22 96.0 105 18 155/78 99 Room Air Status: improved Disposition: HOME, SELF-CARE Condition: Stable Scripts Amoxicillin/Potassium Clav 875-125* (AUGMENTIN 875-125 TABLET*) 1 Each Tablet 1 TAB ORAL TWICE A DAY, #14 TAB Prov: Sreedhar Valentino MD 02/07/20 Indomethacin (INDOMETHACIN) 25 Mg Capsule 25 MG PO TID, #15 CAP Prov: Sreedhar Valentino MD 02/07/20 Referrals: NON PHYSICIAN (PCP) [facility] Patient Instructions: Cellulitis, Pbia-ke-Cuud Sreedhar Valentino MD Feb 07, 2020 14:21
== END 2020-02-07 12:23 | disposition home or self-care (01) ==
LOC: EMR 12:00
DX: L03.114 Cellulitis of left upper limb (principal); I10 Essential (primary) hypertension
CPT/HCPCS: 99282

== ENCOUNTER 2020-04-14 13:43 | Emergency (ER) | payer MEDICARE, OTHER ==
[~2020-04-14] VITALS: Ht 170.2 cm; Wt 86.2 kg
[~2020-04-14 13:43] MED LIST changes: +AUGMENTIN 875-1 EAC1 ORAL; +INDOMETHACIN25 MG PO
[2020-04-14 13:54] VITALS: BP 155/91
[2020-04-14] MEDS ORDERED: Ketorolac 30mg Inj IM ONE (14:00)
[2020-04-14 14:17] LABS: APPEARANCE,URINE CLEAR; BILIRUBIN, URINE NEGATIVE (NEGATIVE); COLOR,URINE PALE YELLOW; GLUCOSE, URINE (UA) NEGATIVE (NEGATIVE); KETONES,URINE NEGATIVE (NEGATIVE); LEUKOCYTE ESTERASE ,URINE 1+ (NEGATIVE); NITRITE,URINE NEGATIVE (NEGATIVE); PH,URINE 6.5 (4.5-8.0); PROTEIN,URINE NEGATIVE (NEGATIVE); UROBILINOGEN,URINE NORMAL MG/DL (0.0-1.0)
--- NOTE | 2020-04-14 15:21 | Diagnostic Imaging Report ---
Indication: Left-sided flank pain Technique: Spiral acquisitions obtained through the abdomen and pelvis. No oral or IV contrast utilized, per urinary stone protocol. Multiplanar reconstructions were generated. Total dose length product 1036 mGycm. CTDIvol(s) 20 mGy. Dose reduction achieved using automated exposure control Comparison: 03/29/2019 contrast study Findings: A few small calculi are seen within the right upper pole collecting system, largest measuring 3 mm in diameter. No left renal calculi are demonstrated. No ureteral calculi, hydronephrosis, or hydroureter demonstrated. Lack of IV contrast limits assessment of the renal parenchyma. No gross renal parenchymal mass or cyst is evident. Lack of IV contrast limits assessment of the other solid organs. The liver, gallbladder, bile ducts, pancreas, spleen, adrenals are unremarkable. No retroperitoneal or mesenteric mass or adenopathy. No pelvic mass or adenopathy. There is colonic diverticulosis. No evidence of diverticulitis. The appendix is normal. No small bowel distention. No free or loculated intraperitoneal gas or fluid is evident. The distal esophagus, stomach, duodenum are unremarkable. The included lung bases are clear. The bones are unremarkable except for mild degenerative spondylosis changes.. Impression: Punctate nonobstructive right upper pole intrarenal calculi, the previously demonstrated. No evidence of ureteral calculus or obstructive uropathy No acute abnormality otherwise Colonic diverticulosis. No evidence of diverticulitis The CT scanner at [facility] is accredited by the [employer] and the scans are performed using protocols designed to limit radiation exposure to as low as reasonably achievable to attain images of sufficient resolution adequate for diagnostic evaluation.
--- NOTE | 2020-04-14 15:31 | Emergency Room Report ---
History of Present Illness General Chief Complaint: Back Pain-No Injury Source: Patient Present Illness HPI 59-year-old female with history of chronic back pain currently taking Neurontin and arthritis here complaining of 1 week of left-sided flank pain with radiation to suprapubic area urinary frequency and urgency. Denies any hematuria, fever and chills, nausea vomiting. Denies any fall or injury or heavy lifting. Has not taken medication other than Motrin and Neurontin for symptom relief. Denies any saddle paresthesia, tingling numbness, urinary bowel incontinence. Patient has a lot of body weight the affected side. Is ambulating without a walker or w heelchair. Denies chest pain, shortness of breath, headache and dizziness. Is neurovascularly intact. Denies leg weakness Allergies: Coded Allergies: No Known Allergies (Unverified , 08/04/14) COVID-19 Screening Contact w/high risk pt: No Recent Travel to affected area: No Experienced COVID-19 symptoms?: No COVID-19 Testing performed PARTS DRIVER: No Patient History Past Medical History: see triage record Past Surgical History: none Pertinent Family History: none Now: No Reviewed Nursing Documentation: PMH: Agreed; PSxH: Agreed Nursing Documentation-PMH Past Medical History: No History, Except For Hx Hypertension: Yes Review of Systems All Other Systems: negative except mentioned in HPI Physical Exam Vital Signs Date Time Temp Pulse Resp B/P (MAP) Pulse Ox O2 Delivery O2 Flow Rate FiO2 04/14/20 13:48 98.1 107 20 155/91 (112) 98 Room Air Sp02 EP Interpretation: reviewed, normal General Appearance: no apparent distress, alert, GCS 15, non-toxic Head: normocephalic, atraumatic Eyes: bilateral eye normal inspection, bilateral eye PERRL ENT: hearing grossly normal, normal pharynx, no angioedema, normal voice Neck: full range of motion, supple/symm/no masses Respiratory: chest non-tender, lungs clear, normal breath sounds, speaking full sentences Cardiovascular #1: regular rate, rhythm, no edema, no gallop Cardiovascular #2: 2+ dorsalis pedis (R), 2+ dorsalis pedis (L) Gastrointestinal: non tender, soft, no mass, no organomegaly, no peritonitis Rectal: deferred Genitourinary: no CVA tenderness Musculoskeletal: back normal, normal range of motion, no calf tenderness, non- tender Neurologic: alert, motor strength/tone normal, oriented x3, sensory intact, responsive, speech normal Psychiatric: judgement/insight normal, memory normal, mood/affect normal, no suicidal/homicidal ideation Skin: no rash Lymphatic: no adenopathy Medical Decision Making PA Attestation All my diagnosis and treatment plans were reviewed ad discussed with my supervising physician Dr. Valentino Diagnostic Impression: Primary Impression: Urinary urgency Additional Impressions: Low back strain Right renal stone ER Course 59-year-old female with history of chronic back pain currently taking Neurontin and arthritis here complaining of 1 week of left-sided flank pain with radiation to suprapubic area urinary frequency and urgency. Denies any hematuria, fever and chills, nausea vomiting. Denies any fall or injury or heavy lifting. Has not taken medication other than Motrin and Neurontin for symptom relief. Denies any saddle paresthesia, tingling numbness, urinary bowel incontinence. Patient has a lot of body weight the affected side. Is ambulating without a walker or wheelchair. Denies chest pain, shortness of breath, headache and dizziness. Is neurovascularly intact. Denies leg weakness Ddx considered but are not limited to: Lumbar spine sprain, strain, fracture, contusion, neuropathy, pyelonephritis, UTI Vital signs: are WNL, pt. is afebrile H&PE are most consistent with: Urinary urgency, low back strain ORDERS: CT abdomen pelvis noncontrast, UA, Keflex, Robaxin, lidocaine patch, Motrin ER intervention: Toradol DISCHARGE: At this time pt. is stable for d/c to home. Will provide printed patient care instructions, and any necessary prescriptions. Care plan and follow up instructions have been discussed with the patient prior to discharge. Patient take medication as directed, follow primary care provider physical therapy, worsening symptoms return to the emergency room CT/MRI/US Diagnostic Results CT/MRI/US Diagnostic Results : Imaging Test Ordered: CT abdomen pelvis no contrast Impression No pyelonephritis noted, small nonobstructive renal calculi noted in the right kidney, nothing acute on the left side. Last Vital Signs Date Time Temp Pulse Resp B/P (MAP) Pulse Ox O2 Delivery O2 Flow Rate FiO2 04/14/20 14:36 98.0 04/14/20 13:48 107 20 155/91 (112) 98 Room Air Disposition: HOME, SELF-CARE Condition: Stable Scripts Cephalexin* (KEFLEX*) 500 Mg Capsule 500 MG ORAL EVERY 12 HOURS for 7 Days, #14 CAP 0 Refills Prov: Mj Negron 04/14/20 Methocarbamol* (ROBAXIN-500*) 500 Mg Tablet 500 MG ORAL TID PRN for For Pain, #15 TAB 0 Refills Prov: Mj Negron 04/14/20 Lidocaine Patch* (Lidoderm Patch*) 1 Each Adh..patch 1 PATCH TOPIC DAILY, #30 PATCH Patch(es) may remain in place for up to 12 hours in any 24-hour period. Prov: Mj Negron 04/14/20 Ibuprofen* (MOTRIN*) 600 Mg Tablet 600 MG ORAL Q6H PRN for For Pain, #30 TAB 0 Refills Prov: Mj Negron 04/14/20 Referrals: NOT CHOSEN IPA/MD,REFERRING (PCP) Patient Instructions: Low Back Strain With Rehab-SportsMed, Urinary Frequency Additional Instructions: Take medication as directed, follow-up with your primary care provider, if worsening symptoms return to the emergency room Mj Negron Apr 14, 2020 15:31
[2020-04-14] MEDS ORDERED: LIDODERM700 M1 TOPIC (15:32)
[2020-04-14] MEDS ORDERED: ROBAXIN-500MG ORAL (15:32)
[2020-04-14] MEDS ORDERED: CEPHALEXIN500 MG ORAL (15:32)
[2020-04-14] MEDS ORDERED: IBUPROFEN600 M1 ORAL (15:32)
[2020-04-14 15:40] VITALS: BP 155/91
== END 2020-04-14 15:40 | disposition home or self-care (01) ==
LOC: EMR 14:17
DX: N20.0 Calculus of kidney (principal); R39.15 Urgency of urination; S39.012A Strain of muscle, fascia and tendon of lower back, initial encounter; I10 Essential (primary) hypertension; X58.XXXA Exposure to other specified factors, initial encounter; Y93.9 Activity, unspecified; Y92.9 Unspecified place or not applicable
CPT/HCPCS: 74176; 81003; 96372; 99284; J1885